=== PATIENT | male | born 1960 | race Caucasian/White ===

== ENCOUNTER 2019-05-23 23:52 | Inpatient (IN) | payer OTHER ==
[~2019-05-23] VITALS: Ht 195.6 cm; Wt 158.5 kg
[2019-05-24] VITALS (8 sets, daily range): BP systolic 83–156; BP diastolic 49–75; Ht 195.6 cm; Wt 158.5 kg
--- NOTE | 2019-05-24 00:20 | NUR ---
MSE COMPLETED BY DR HAGER
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
[2019-05-24 00:44] LABS: CALCIUM 9.1 mg/dL (8.5-10.1); CHLORIDE SERUM 105 mmol/L (98-107); CREATININE SERUM 1.1 mg/dL (0.7-1.3); GFR1 > 60 mL/min; GLUCOSE SERUM 134 mg/dL (74-106); SODIUM SERUM 141 mmol/L (136-145)
[2019-05-24 00:49] LABS: ALBUMIN 3.4 g/dL (3.4-5.0); ALKALINE PHOSPHATASE 64 U/L (46-116); ALT/SGPT 37 U/L (16-63); AST/SGOT 23 U/L (15-37); BILIRUBIN TOTAL 0.3 mg/dL (0.20-1.00); TOTAL PROTEIN, SERUM 7.7 g/dL (6.4-8.2)
[2019-05-24 00:50] LABS: BASOPHIL % 0.1 % (0-2); PLATELET COUNT 215 x10^3mcL (130-400)
[2019-05-24 00:52] LABS: RED CELL DISTRIBUTION WIDTH 18.3 % (11.5-14.5)
--- NOTE | 2019-05-24 01:06 | NUR ---
PT PLACED ON BIPAP MACHINE PER DR HAGER VERBAL ORDERS. PT IS TOLERATING MASK WELL. WILL CONTINUE TO MONITOR
--- NOTE | 2019-05-24 02:05 | NUR ---
PT WAS ABLE TO USE URINAL TO GIVE URINE SPECIMEN. PT REPORTS VELÁSQUEZ. DR HAGER MADE AWARE
--- NOTE | 2019-05-24 02:28 | NUR ---
PT RETURNED FROM CT WITH NO INCIDENCE
[2019-05-24 02:43] LABS: UA SPECIFIC GRAVITY 1.025 (1.005-1.035); microscopic required? YES; urine erythrocyte TRACE (NEGATIVE)
[2019-05-24] MEDS ORDERED: METFORMIN HCL850 MG PO (02:57)
[2019-05-24] MEDS ORDERED: ATROVENT H0.017 MG/1 INH (02:58)
[2019-05-24] MEDS ORDERED: XOPENEX HF0.045 MG/1 INH (02:58)
[2019-05-24] MEDS ORDERED: FUROSEMIDE20 MG PO (02:59)
[2019-05-24] MEDS ORDERED: COUMADIN10 MG PO (02:59)
[2019-05-24] MEDS ORDERED: KLOR-CON M2020 MEQ PO (02:59)
[2019-05-24] MEDS ORDERED: ATORVASTATIN CA10 M1 PO (02:59)
[2019-05-24] MEDS ORDERED: FLO4 PO (03:00)
[2019-05-24] MEDS ORDERED: NYSTATIN1 EAC8 MC (03:00)
--- NOTE | 2019-05-24 03:43 | NUR ---
PT REPORT GIVEN TO ARIELA CASTILLO TO ASSUME PRIMARY CARE OF PT ON TELE FLOOR
[2019-05-24 03:57] LABS: CHOLESTEROL/HDL RATIO 3.1; MAGNESIUM 1.7 mg/dL (1.8-2.4)
[2019-05-24 03:58] LABS: AMPHETAMINE QUAL UR NONE DETECTED (See below)
--- NOTE | 2019-05-24 03:59 | NUR ---
PT MEDICATED PER EMAR ORDERS. PT ADJUSTED INTO A COMFORTABLE POSITION ON ED GURNEY. PT IS A/O X4. PT RESPS ARE E/U. PT HAS GUARDS AT BEDSIDE. NO ACD NOTED
--- NOTE | 2019-05-24 04:24 | NUR ---
PT WHEELED UPSTAIRS TO TELE FLOOR VIA ED GURNEY AND ESCORTED BY MYSELF AND ANÍBAL EMT. NO INCIDENCE NOTED
--- NOTE | 2019-05-24 05:30 | NUR ---
RECIEVED PATIENT FROM ED NURSE VIA MELANIA. PATIENT IS MADE COMFORTABLY IN BED. NO DISTRESS NOTED. ON BIPAP. BREATHING EVEN AND UNLABORED. NO SOB. WHEEZING HEARD TO THE LLL. RT PROTOCOL A/OX4. C/O MILD HEADACHE AND DIZZINESS. HEADACHE AND RLE PAIN 07/01. ED NURSE JUST MEDICATED WITH PRN MORPHINE PRIOR TO TRANSFER. DENIES CHEST PAIN AT THIS TIME. TELE 27 WITH SINUS TACH. TWO IV TO THE RIGHT HAND 22G (PLACE BY CLINIC) AND RFA, 20G. BOTH PATENT AND INTACT. NO REDNESS OR SWELLING NOTED. WOUNDS NOTED TO THE BLE. PICTURES TAKEN. SCD AT BEDSIDE. HX OF DVT. COMFORT AND SAFETY MEASURES IN PLACE. ORIENTED PATIENT TO THE ROOM AND BED CONTROLS. CALL LIGHT IS WITHIN REACH. SAFETY MEASURES IN PLACE. BED IS LOCKED AND IN THE LOWEST POSITION. WILL CONTINUE TO MONITOR AND ENDORSE CARE TO DAY SHIFT RN.
--- NOTE | 2019-05-24 06:31 | NUR ---
C/O 10/ HEADACHE. PRN NORCO WAS GIVEN PRESCRIBED. WILL CONTINUE TO MONITOR AND REASSESS PAIN LEVEL. WILL ENDORSE TO DAY SHIFT RN
--- NOTE | 2019-05-24 07:10 | NUR ---
RECEIVED HAND OFF REPORT FROM OFF GOING NURSE. FOUND PATEINT RIGHT SIDE LAYING WITH BIPAP IN PLACE. TELE MONITOR 27, CALL LIGHT WITHIN REACH. OFFICER AT BEDSIDE
--- NOTE | 2019-05-24 08:56 | NUR ---
PATIENT COMPLAINING OF HEADACHE, ADMINSITERED PER JAN. INSTRUCTED PATIENT TO KEEP BIPAP IN PLACE DUE TO INCREASED SHORTNESS OF BREATH AND INCREASED WORK OF BREATHING WHEN REMOVED. PATIENT SITTING UP HIGH IN BED WITH HOB RAISED. CALL LIGHT WITHINREACH
--- NOTE | 2019-05-24 10:23 | NUR ---
PATIENT OFF BIPAP PER RT. NOW ON XOIMIZER AT 8L SATTING 94%. CURRENTLY OFF FLOOR FOR CT HEAD.
--- NOTE | 2019-05-24 10:53 | NUR ---
PATIENT BACK FROM CT OF HEAD. INCREASED WORK OF BREATHIN ON THE XOIMIZER, INCREASED TO 10L, SATTING AT 89. RT TIANA PLACED PATIENT BACK ON BIPAP. SOW SATTING AT 94. SUPERVISOR BAKING CAME TO START ECHOCARDIOGRAM. PATIENT LEFT SIDE LAYING WITH HEAD OF BED RAISED. CALL LIGHT WITHIN REACH AND CO AT BEDSIDE
--- NOTE | 2019-05-24 11:33 | NUR ---
LIMITED ECHOCARDIOGRAM DONE-PATIENT VERY SHORT OF BREATH
--- NOTE | 2019-05-24 11:40 | NUR ---
ARIKN UNABLE TO COMPLETE ECHOCARDIOGRAM, PATIENT HAD REMOVED BIPAP MASK AND HAD DIFFICULTY BREATHING. REPLACED BIPAP AND REPOSITIONED PATIENT. PATIENT CONTINUES TO COMPLAIN OF PAIN AND AGITATION. AFTER CALMING PATIENT, OXYGEN SATURATON INCREASED TO 93%. VITAL SIGNS STABLE, RT SEEING ASSESSING PATIENT.
--- NOTE | 2019-05-24 13:34 | NUR ---
CALLED DR RAMOS AND RECEIVED ORDER FOR TORODOL 15MG IV Q6H PRN PAIN. READ BACK ORDER TO CONFIRM
--- NOTE | 2019-05-24 14:17 | NUR ---
MADE DR RAMOS AWARE OF NSAID ALLERGY ON RECORD. PATIENT STATES THAT HE IS NOT ALLERGIC TO NSAIDS ONLY TO KFLEX AND CIPRO. REMOVED ALLERGY FROM RECORD. DR RAMOS ORDERED TORADOL 15MG IV ONCE. PATIENT STATED MULITPLE TIMES THAT HE IS NOT ALLERGIC TO NSAIDS. DR RAMOS STATED HE HAS NO KNOWLEDGE OF NSAID ALLERGY AND CONFIRMED ORDER FOR TORADOL
--- NOTE | 2019-05-24 14:43 | NUR ---
ADMINISTERED TORADOL FOR PAIN PER DR RAMOS ORDER. PATIENT AGAIN CONFIRMED THAT HE IS NOT ALLERGIC TO NON STEROID ANTI-INFLAMATORY MEDICATION. MAICOL RN WILL REMAIN IN ROOM WITH PATIENT TO MONITOR FOR A TIME. CO AT [facility] AND CALL DMITRIY CARCAMO
--- NOTE | 2019-05-24 15:27 | NUR ---
ASSISTED PT TO WASH FACE AND BED BATH, ASSISTED PT TO BRUSH TEETH, PT SITTING AT EDGE OF BED, BIPAP ON, PT STATES TORADOL RELIEVED VELÁSQUEZ MODERATELY, GUARD AT BEDSIDE, CALL LIGHT WITHIN REACH.
--- NOTE | 2019-05-24 17:05 | NUR ---
PATIENT RESTING IN, BED IN SEMIFOWLERS WITH BIPAP IN PLACE. PATIENT TELE MONITOR REPLACED AND CONFIRMED WITH CK. RENFORCED TEACHING TO PATIENT TO KEEP BIPAP IN PLACE TO ASSIT WITH BREATHING. PATIENT HAD NO COMPLAINTS AT THIS TIME. NUSRAT NAVA, AT BEDSIDE. CALL LIGHT WITHIN REACH
--- NOTE | 2019-05-24 17:28 | NUR ---
SPOKE WITH DR RICHARD ZUNIGA PATIENT HAS HISTORY OF DVT TO RIGHT LOWER EXTREMITY. CURRETLY EXTREMITY IS RED AND TENDER TO TOUCH. DR RAMOS AGREED WITH ORDER FOR BILAT LOWER EXTREMITY US.
--- NOTE | 2019-05-24 17:53 | NUR ---
ADMINISTERED MEDICATIONS PER JAN. BG RESULT 113, NO COVERAGE NEEDED. PATIENT SHIVERING, NO FEVER NOTED, TEMP 99.7. TURNED OFF AC UNIT AND PROVIDED ADDITIONAL BLANKET. CALL LIGHT WITHIN REACH
--- NOTE | 2019-05-24 18:59 | NUR ---
PATIENT COMPLAINING OF PAIN. MEDICATED PER MAR, PATIENT REPORTS THAT US OF HIS LEGS WAS DONE. CALL LIGHT WITHIN REACH
--- NOTE | 2019-05-24 19:40 | NUR ---
RECEIVED REPORT FROM AM NURSE, PT IN BED. PT AAOX4 ABLE TO FOLLOW COMMANDS. ON TELE #27, DENIES CP/PRESSURE AT THIS TIME. PALPABLE PULSES TO BLE AND BUE, EDEMA TO RIGHT LEG. WHEEZE TO ANGIE LOWER LOBES, ON BIPAP, SOB ON EXERTION. ABD FIRM AND ROUND, ACTIVE BOWEL SOUNDS X4 QUAD, DENIES N/V. VOIDS FREELY ON URINAL, BEDFST AT THIS TIME. GENERALIZED WEAKNESS. WOUNDS TO LLE AND RLE COVERED WITH DRESSING, DRESSING CDI. SL TO RIGHT WRIST FLUSING WELL, SITE FREE FROM REDNESS AND SWELLING. SL TO RIGHT WRIST FLUSING WELL, SITE FREE FROM REDNESS AND SWELLING. BED AT LOWEST POSITION, CALL LIGHT WITHING REACH, WILL CONTINUE TO MONITOR.
--- NOTE | 2019-05-24 20:09 | NUR ---
CALLED DR RAMOS REGARDING PT LATEST BP, BP 83/54 TO RIGHT ARM, BP 83/55 TO LEFT ARM AND LATEST TEMP OF 101.4. NEW ORDERS GIVEN, VANCOMYCIN 1GM X1 AND PHAMACY TO DOSE, NS BOLUS 500ML X1. BACTRIM 1GM IV Q12H. PHARMACY MADE AWARE OF ORDERS, HAD SOME QUESTIONS ABOUT BACTRIM ORDER, INFORMED NURSE HE WILL CALL DR TO CLARIFY BACTRIM ORDER.
--- NOTE | 2019-05-24 22:00 | NUR ---
PT MEDICATED WITH PRN TYLENOL FOR FEVER OF 101.4, REASSED TEMP, CURRENT TEMP IS 99.1, WILL CONTINUE TO MONITOR
--- NOTE | 2019-05-24 22:03 | NUR ---
RECHECKED BP, CURRENT BP IS 107/71, HR 95, NO SIGNS OF ACUTE DISTRESS NOTED. WILL CONTINUE TO MONITOR.
[2019-05-25] VITALS (8 sets, daily range): BP systolic 89–163; BP diastolic 48–104
--- NOTE | 2019-05-25 04:16 | NUR ---
PT REPORTED SHIVERING.TEMP CHECKED @ 101.6F.TYLENOL 650 MG PO ADMINISTERED.COOLING MEASURES RESTARTED.REFUSING TO TAKE OFF BLANKETS AT THIS TIME BUT ABLE TO REMOVE ONE.FLUIDS OFFERED AND D TOLERATED WELL.REMAINS ON BIPAP.WILL CONTINUE TO MONITOR.
[2019-05-25 06:33] LABS: PLATELET COUNT 177 x10^3mcL (130-400)
[2019-05-25 06:37] LABS: CARBON DIOXIDE 20.1 mmol/L (21-32); CREATININE SERUM 1.8 mg/dL (0.7-1.3); POTASSIUM SERUM 4.3 mmol/L (3.5-5.1)
--- NOTE | 2019-05-25 06:38 | NUR ---
MORNING CARE RENDERED.CHANGED ALL GOWNS AND LINEN AND ABLE TO TRANSFER FROM BED TO WHEELCHAIR.INN NO RESPIRATORY DISTRESS.WILL CONTINUE TO MONITOR.
--- NOTE | 2019-05-25 06:53 | NUR ---
PT BP THIS AM @ 89/53 MG/DL.PT ASYMPTOMATIC.CALLED DR. RAMOS WITHN ORDER FOR BOLUS 500ML X1.WILL CARRY OUT.
--- NOTE | 2019-05-25 07:30 | NUR ---
RECEIVED HAND OFF REPORT FOR PATIENT FROM [facility] NURSE. FOUND PATIENT UP ON SIDE OF BED EATING BREAKFAST TRAY, PATIENT HAD REMOVED BIPAP MASK AND WAS HAVING INCREASED WORK OF BREATHING SO PLACED PATIENT ON OXIMIZER AT 10L. TOELRATED WELL DURING MEAL. CALL LIGHT WITHIN REACH
--- NOTE | 2019-05-25 07:59 | NUR ---
PATIENT HAD FINISHED MEAL TRAY, VS CHECKED: BP 96/48, O2 SAT 89% PATIENT WANTED TO LAY DOWN SO REPLACED THE BIPAP AND TIGHTENED MASK TO REMOVED LEAKS. TOLLERATING WELL, STARTED 500ML BOLUS NS FOR BLOOD PRESSURE PER ORDER CALL LIGHT WITHIN REACH
[2019-05-25 08:08] LABS: RED CELL DISTRIBUTION WIDTH 18.2 % (11.5-14.5)
--- NOTE | 2019-05-25 08:33 | NUR ---
PATIENT CALLED TO COMPLAIN OF PAIN TO HIS HEAD. INFORMED PATIENT THAT DUE TO DECREASED BLOOD PRESSURE HE COULD NOT RECEIVE PAIN MEDICATION. NS BLOUS STILL INFUSING. WILL REASSESS BLOOD PRESSURE AFTER INFUSION ENDS. PATIENT SITTING UP ON SIDE OF BED. WEARING BIPAP MASK WITH GOOD COMPLIANCE. CALL LIGHT WITHIN REACH
--- NOTE | 2019-05-25 10:02 | NUR ---
ADMINISTERED MEDICATIONS PER JAN, HELD BLOOD PRESSURE MEDICATIONS BECUASE OF LOW BLOOD PRESSURE. PATIENT COMPLAINING OF HEAD ACHE, THROBBING 07/01 DID NOT WANT TYLENOL WANTED AN IV MEDICATION, INFORMED PATIENT THAT HIS BLOOD PRESSURE IS LOW AND MEDICATION COULD MAKE BLOOD PRESSURE GO LOWER, GAVE PATIENT ICE PACK FOR HEAD. REMAINS ON BIPAP WITH GOOD COMPLIANCE. CALL LIGHT WITHIN REACH, REQUESTED LIGHTS TO BE TURNED OUT
--- NOTE | 2019-05-25 10:58 | NUR ---
MEDICATED WITH NORCO FOR PAIN, 07/01 TO HEADACHE. PATIENT BLOOD PRESSURE WAS 117/64 MAP 79. SITTING UP ON SIDE OF BED, CALL LIGHT WITHIN REACH, CO AT BEDSIDE
[2019-05-25 12:17] LABS: BAND NEUTROPHIL 25 % (0-10); MONOCYTE 5 % (0-7); SEGMENTED NEUTROPHILS 66 % (37-75); rbc morphology (normal/abnorm) ABNORMAL (NORMAL)
[2019-05-25 12:18] LABS: PLATELET MORPHOLOGY LARGE PLATELET SEEN
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
--- NOTE | 2019-05-25 12:32 | NUR ---
Recommendations: 1. Add Remy BID for wound healing 2. Add Ensure Enlive BID
--- NOTE | 2019-05-25 13:26 | NUR ---
RUBEN FROM PHARMACY CALLED TO INFORM OF DISCONTINUED VANCO INFUSION DUE TO VANCO TROUGH OF 23. INSTRUCTED TO NOT GIVE 1400 DOSE OF VANCO
--- NOTE | 2019-05-25 15:42 | NUR ---
MEDICATED PRN FOR PAIN, PATIENT REQUESTING TORADOL. BLOOD PRESSURE HIGH. PATIENT IS NOW ON OXIMIZER 8L. TOLERATING WELL. BIPAP MASK WITHIN REACH. CALL LIGHT WITHIN REACH, CO IN ROOM
--- NOTE | 2019-05-25 17:20 | NUR ---
ADMIISTERED MEDICATION PER JAN. COMPLAINED OF HEADACHE AND REQUESTED TYLENOL. PATIENT SITTING UP AT SIDE OF BED. CALL LIGHT WITHIN REACH
--- NOTE | 2019-05-25 17:26 | NUR ---
RT AT BEDSIDE. CHANGING PATIENT OVER TO HIGH FLOW 02. PROVIDING TEACHING ON INCENTIVE SPIROMETER.
--- NOTE | 2019-05-25 19:27 | NUR ---
RECEIVED REPORT FROM AM NURSE. PT LAYING DOWN IN BED. AAOX4, ABLE TO MAKE NEEDS KNOWN. ON TELE#27, DENIES CP/PRESSURE AT THIS TIME. PALPABLE PULSES TO BLE, EDEMA TO BLE NOTED. WHEEZES TO ANGIE LOWER LOBES, FINE CRACKLES TO RUL, PT ON BIPAP BREATHING EVEN AND UNLABORED. NO SIGNS OF ACUTE DISTRESS NOTED. ABD FIRM AND ROUND, AVTIVE BOWEL SOUNDS X4 QUAD, DENIES N/V AT THIS TIME. VOIDS FREELY ON URINAL. GENERALIZED WEAKNESS, BESFAST AT THIS TIME, ABLE TO TRANSFER TO CHAIR OR WHEELCHAIR. BLE ISLAND DRESSING CDI. IV SL TO RIGHT WRIST AND RFA FLUSING WELL, SITE FREE FROM REDNESS AND SWELLING. BED AT LOWEST SETTING, CALL LIGHT WITHING REACH, WILL CONTINUE TO MONITOR.
--- NOTE | 2019-05-25 22:37 | NUR ---
PT COMPLAINING OF H/A, MEDICATED WITH PRN TYLENOL PER ORDER. PT REPORTS GOOD RELIEF. NO SIGNS OF ACUTE DISTRESS NOTED, WILL CONTINUE TO MONITOR.
[2019-05-26] VITALS (7 sets, daily range): BP systolic 89–143; BP diastolic 41–78
--- NOTE | 2019-05-26 00:49 | NUR ---
PT CHANGED TO OXYMIZER PER RT, TOLERATING WELL, 02 SAT AT 97%. WILL CONTINUE TO MONITOR.
--- NOTE | 2019-05-26 01:28 | NUR ---
PT IN BED SLEEPING COMFORTABLY. BREATHING EVEN AND UNLABORED ON HIGH FLOW TOLERATING WELL. NO SINGS OF ACUTE DISTRESS NOTED. BED AT LOWEST SETTING, CALL LIGHT WITHING REACH. WILL CONTINUE TO MONITOR.
[2019-05-26 06:14] LABS: PLATELET COUNT 171 x10^3mcL (130-400)
--- NOTE | 2019-05-26 06:30 | NUR ---
PT SLEPT AT INTERVALS THROUGHOUT THE NIGHT. BREATHING EVEN AND UNLABORED ON OXYMIZER. NO SIGNS OF ACUTE DISTRESS NOTED. ALL NEEDS ASSESSED AND ATTENDED TO. IV TO LFA INFUSIGN WELL, SITE WNL. BED AT LOWEST SETTING, CALL LIGHT WITHING REACH. WILL ENDORSE CARE TO AM NURSE.
[2019-05-26 06:51] LABS: CALCIUM 9.4 mg/dL (8.5-10.1); CARBON DIOXIDE 22.7 mmol/L (21-32); CREATININE SERUM 1.6 mg/dL (0.7-1.3); POTASSIUM SERUM 4.4 mmol/L (3.5-5.1); RED CELL DISTRIBUTION WIDTH 18.6 % (11.5-14.5)
--- NOTE | 2019-05-26 07:10 | NUR ---
RECEIVCED BEDSIDE REPORT FORM DIRECTOR OF SERVICES NURSE. PATIENT IS SLEEPING. ON 8L OXYMIZER. PATIENT IS CIM HAS RESTRAINT TO ROYER DEPUTTin AT BEDSIDE. PATIENT HAS SEVERAL WOUNDS TO BLE. ALSO MULTIPLE HEALED SCARS TO BLE. WOUNDS COVERED WITH ISLAND DRESSING. DRESSING CDI. IV TO LFA IS INTACT AND PATENT. NE EDEMA OR ERYTHEMA NOTED TO SITE. CALL LIGHT WITHIN REACH. BED IN LOW POSITION. QUESTIONS AND CONCERNS ADDRESSED. SAFETY PRECAUTIONS IN PLACE.
--- NOTE | 2019-05-26 07:15 | NUR ---
PHYSICAL ASSESSMENT COMPLETED. PLEASE SEE PROBLEM FOCUSED CARE FOR DETAILS.
--- NOTE | 2019-05-26 08:33 | NUR ---
CONTACTED MD RAMOS TO MAKE AWARE OF RLE HOT, SWOLLEN. PER MD PATIENT ON COUMADIN, US FOR DVT NEG ON 05/24/19. HE WILL ASSESS PATIENT WHEN MAKING ROUNDS. NO FUTHER ORDERS AT THIS TIME.
--- NOTE | 2019-05-26 09:12 | NUR ---
PATIENT IS STABLE RESTING COMFORTABLY IN BED. NO APPARENT SIGNS OF PAIN. PATIENT DENIES SOB, OR RESPIRATORY DISTRESS. ON 8L OXYMIZER. DEPUTY AT BEDSIDE. CALL LIGHT WITHIN REACH. BED IN LOW PISITION. QUESTIONS AND CONCERNS ADDRESSED, SAFETY PRECAUTIONS IN PLACE.
--- NOTE | 2019-05-26 10:29 | NUR ---
ADMINISTERED MEDICATIONS PER EMAR. PATIENT EDUCATED ON NEED FOR MEDICATION, WELL ADVERSE EFFECTS TO REPORT. PATIENT VERBNALIZED UNDERSTANDING. CALL LIGHT WITHIN REACH. BED IN LOW POSITION, BED RAILS UP X2. DEPUTY AT BEDSIDE. ON 8L OXYMIZER IN PLACE. IV PATENT AND INTACT. SCD'S AT BEDSIDE. QUESTIONS AND CONCERNS ADDRESSED. SAFETY PRECAUTIONS IN PLACE.
[2019-05-26 11:32] LABS: BAND NEUTROPHIL 0 % (0-10); BASOPHIL 0 % (0-2); MONOCYTE 4 % (0-7); SEGMENTED NEUTROPHILS 92 % (37-75)
[2019-05-26 11:33] LABS: PLATELET MORPHOLOGY PLATELETS DECREASED; rbc morphology (normal/abnorm) ABNORMAL (NORMAL)
--- NOTE | 2019-05-26 12:16 | NUR ---
ADMINISTERED MEDICATION PER EMAR. PATIENT EDUCATED ON NEED FOR MEDICATION WELL ADVERSE EFFECTS TO REPORT. PATIENT VERBALIZED INDERSTANDING. QUESTIONS AND CONCERNS ADDRESSED. SAFETY PRECAUTIONS IN PLACE.
--- NOTE | 2019-05-26 12:57 | NUR ---
PATIENT C/O HEART BURN. CONTACTED MD RAMOS. GAVE TELEPHONE ORDER FOR MYLANTA 30ML PO BID FOR HEART BURN.
--- NOTE | 2019-05-26 13:44 | NUR ---
PATIENT C/O HEADACHE. ADMINISTERED MEDICATION PER EMAR. PATIENT EDUCATED ON NEED FOR MEDICATION WELL ADVERSE EFFECTS TO REPORT. PATIENT VERBALIZED UNDERSTANDING. PATIENT DENIES OTHER NEEDS AT THIS TIME. QUESTIONS AND CONCERNS ADDRESSED. SAFETY PRECAUTIONS IN PLACE.
--- NOTE | 2019-05-26 15:37 | NUR ---
PATIENT IS STABLE NO APPARENT SIGNS OF PAIN. PATIENT DENIES SOB, OR RESPIRATORY DISTRESS. PATIENT C/O NAUSEA. STATES DOES NOT WANT MORE MEDCATION FOR NOW. PATIENT DENIES OTHER NEEDS AT THIS TIME. CALL LIGHT WITHIN REACH. BED IN LOW POSITION. QUESTIONS AND CONCERNS ADDRESSED. SAFETY PRECAUTIONS IN PLACE.
--- NOTE | 2019-05-26 16:26 | NUR ---
PATIENT C/O NAUSEA. ADMINISTERED MEDICATION PER EMAR. PATIENT IS ON HIGH FLOW 40L AT 75% SATING 92%. CALL LIGHE WITHIN REACH. BED IN LOW POSITION. DEPUTY AT BEDSIDE. PATIENT DENIES OTHER NEEDS. QUESTIONS AND CONCERNS ADDRESSED. SAFETY PRECAUTIONS IN PLACE.
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
--- NOTE | 2019-05-26 19:25 | NUR ---
ENDORSED CARE TO PRICING ANALYST NURSE TEMI.
--- NOTE | 2019-05-26 19:30 | NUR ---
RECEIVED PT FROM DAY SHIFT RN. PT RESTING IN BED, ALERT AND ORIENTED. PT STATES THAT HE HAS A LITTLE TROUBLE BREATHING AND IS SITTING ON THE EDGE OF TH BED. INSTRUCTED PT NOT TO REMOVE HIGH FLOW O2 THAT IS CURRENTLY AT 40L. PT HAS A LFA IV THAT IS CLEAN DRY AND INTACT. BLE SKIN IS NOT INTACT. ISLAND DRESSINGS COVERING LEFT LEG. REDNESS AND EDEMA TO RIGHT LEG NOTED. PT STATES THAT HE IS HAVING PAIN IN HIS LOWER EXTREMITIES. WILL MEDICATED PER ORDER. PT IS WHEEZING. EFFORT IS LABORED. BREATHING IS EVEN. INSTRUCTED PT TO CALL IF SOB IS WORSENING AND NONTOLERABLE. SAFETY MEASURES ARE IN PLACE. TELE MONITOR IN PLACE. CALL LIGHT WITHIN REACH. WILL CONTINUE TO MONITOR.
--- NOTE | 2019-05-26 21:11 | NUR ---
CALLED PHARMACY TO VERIFY IF IT IS OK TO HANG 2100 VANCOMYCIN TROUGH 16. PHARMACIST SAID IT WAS OK TO GIVE. WILL CARRY OUT
--- NOTE | 2019-05-26 23:23 | NUR ---
ADMINISTERED 0900 LASIX PER CHARGE NURSE ORDER. PT BP SUFFICIENT ENOUGH FOR ADMINISTRATION. PT TOLERATED WELL
--- NOTE | 2019-05-26 23:24 | NUR ---
WRAPPED PT LEGS. PT TOLERATED WELL.
--- NOTE | 2019-05-26 23:24 | NUR ---
PT CONTINUOUSLY TAKES OF OXYGEN. EXPLAINED TO PATIENT THE NEED TO KEEP HIS O2 SATURATION HIGHER. PT AGREED TO KEEP IT ON.
[2019-05-27] VITALS (7 sets, daily range): BP systolic 119–140; BP diastolic 52–78
--- NOTE | 2019-05-27 00:47 | NUR ---
PT PULLED OUT IV. WILL RESTART NEW ONE.
--- NOTE | 2019-05-27 01:43 | NUR ---
PT WENT INTO ATRIAL FIBRILLATION. SPOKE TO DR RAMOS ON THE PHONE. DR RAMOS SAID TO GIVE THE MISSED DOSE OF METROPOLOL. WILL CARRY OUT ORDER.
--- NOTE | 2019-05-27 01:55 | NUR ---
PT NOW SINUS TACH ADMINISTERED METROPOLOL PER ORDER
--- NOTE | 2019-05-27 02:13 | NUR ---
RECEIVED PT FROM ER VIA [employer]. PT IS ALERT AND ORIENTED X 4 AND ABLE TO FOLLOW COMMANDS. PT IS [place] SPEAKING AND SHE IS ACCOMPANIED BY HER . ON ASSESSMENT PT IS NOT SYMPTOMATIC FOR CHEST PAIN OR SHORTNESS OF BREATH. THERE ARE NO USE OF ACCESSORY MUSCLES OR LABORED BREATHING ON ASSESSMENT. TELE MONITOR IN PLACE #15 SINUS ARRYTHMIA AT 56. BOWEL SOUNDS ARE HYPOACTIVE. PT IS COMPLAINING OF ABD PAIN 7/10 AT THIS TIME. WILL MEDICATE PER ORDER. PT HAS A RAC IV THAT IS CLEAN DRY AND INTACT RUNNING AT 100 ML/HR. SKIN IS INTACT. PT IS AMBULATORY. SAFETY MEASURES ARE IN PLACE. BED IN LOWEST POSITION. WILL CONTINUE TO MONITOR.
[2019-05-27 06:02] LABS: PLATELET COUNT 185 x10^3mcL (130-400)
[2019-05-27 06:18] LABS: CALCIUM 9.6 mg/dL (8.5-10.1); CARBON DIOXIDE 27.7 mmol/L (21-32); CHLORIDE SERUM 102 mmol/L (98-107); CREATININE SERUM 1.2 mg/dL (0.7-1.3); GFR1 > 60 mL/min; GLUCOSE SERUM 112 mg/dL (74-106); POTASSIUM SERUM 4.3 mmol/L (3.5-5.1); SODIUM SERUM 138 mmol/L (136-145)
[2019-05-27 06:45] LABS: RED CELL DISTRIBUTION WIDTH 19.1 % (11.5-14.5)
--- NOTE | 2019-05-27 06:55 | NUR ---
PT RESTING IN BED WITH EYES CLOSED. NO FACIAL GRIMMACING OR USE OF ACCESSORY MUSCLES. BREATHING EVEN AND UNLABORED. SAFETY MEASURES IN PLACE. CALL LIGHT WITHIN REACH. WILL ENDORSE TO AV BENTLEY RN.
--- NOTE | 2019-05-27 07:10 | NUR ---
RECEIVED REPORT FROM BOOKMAKER MAP NURSE TEMI. PATIENT IS STABLE DENIES CHEST PAIN, SOB, OR RESPIRAOTRY DISTRESS. PATIENT IS ON HIGH FLOW OXYGEN 40L AT 75% PATIENT CONTINUES TO COUGH FREQUENTLY WITH MUCOUS PRODUCTION. DEPUTY AT BEDSIDE. IV TO LFA IS SALINE LOCKED. NO EDEMA OR ERYTHEMA NOTED TO SITE. ON TELE 27. CALL LIGHT WITHIN REACH, BED IN LOW POSITION, BED RAILS UP X2. QUESTIONS AND CONCERNS ADDRESSED. SAFETY PRECAUTIONS IN PLACE.
--- NOTE | 2019-05-27 07:28 | NUR ---
RECEIVED REPORT FROM NEWSPAPER PEDDLER NURSE TEMI. PATIENT IS STABLE DENIES CHEST PAIN, SOB, OR RESPIRAOTRY DISTRESS. PATIENT IS ON HIGH FLOW OXYGEN 40L AT 75%. PATIENT CONTINUES TO COUGH FREQUENTLY WITH MUCOUS PRODUCTION. DEPUTY AT BEDSIDE. IV TO LFA IS SALINE LOCKED. NO EDEMA OR ERYTHEMA NOTED TO SITE. ON TELE 27. CALL LIGHT WITHIN REACH, BED IN LOW POSITION, BED RAILS UP X2. QUESTIONS AND CONCERNS ADDRESSED. SAFETY PRECAUTIONS IN PLACE.
--- NOTE | 2019-05-27 07:45 | NUR ---
PATIENT COMPLAINING OF HEADACHE. ADMINISTERED MEDICATION PER EMAR. EDUCATED ON NEED FOR MEDICATION. PATIENT VERBALIZED UNDERSTANDING AND ADVERSE EFFECTS TO REPORT. QUESTIONS AND CONCERNS ADDRESSED. SAFETY PRECUTIONS IN PLACE.
--- NOTE | 2019-05-27 09:45 | NUR ---
ADMINISTERED MEDCATION PER EMAR. PATIENT EDUCATED ON NEED FOR MEDICATION AND ADVERSE EFFECTS TO RESPORT. PATIENT VERBALIZED UNDERSTANDING. QUESTIONS AND CONCERNS ADDRESSED. SAFETY PRECAUTIONS IN [place]. DEPUTY AT BEDSIDE.
--- NOTE | 2019-05-27 10:03 | NUR ---
PATIENT C/O TO MUCH WATER IN THE HIGH FLOW OXYGEN DEVICE. CALLED RT TO EXAMINE THE EQUIPMENT.
[2019-05-27 10:20] LABS: BASOPHIL 0 % (0-2); MONOCYTE 8 % (0-7)
[2019-05-27 10:21] LABS: BAND NEUTROPHIL 20 % (0-10)
[2019-05-27 10:22] LABS: SEGMENTED NEUTROPHILS 64 % (37-75)
[2019-05-27 10:23] LABS: rbc morphology (normal/abnorm) ABNORMAL (NORMAL)
--- NOTE | 2019-05-27 12:11 | NUR ---
PATIENT IS STABLE. DENIES SOB, OR RESPIRATORY DISTERESS. PATIENT STATES PAIN TO BLE. DENIES NEED FOR MEDICATION AT THIS TIME. PATIENT DENIES OTHER NEEDS AT THIS TIME. CALL LIGHT WITHIN REACH. BED IN LOW POSITION. ON HIGH FLOW OXYGEN 40L. IV SALINE LOCKED, NO EDEMA OR ERYTHEMA NOTED TO SITE. QUESTIONS AND CONCERNS ADDRESSED, SAFETY PRECAUTIONS IN PLACE.
--- NOTE | 2019-05-27 16:20 | NUR ---
ADMINISTERED MEDCATION PER EMAR. PATIENT EDUCATED ON NEED FOR MEDICATION AND ADVERSE EFFECTS TO RESPORT. PATIENT VERBALIZED UNDERSTANDING. QUESTIONS AND CONCERNS ADDRESSED. SAFETY PRECAUTIONS IN [place].
--- NOTE | 2019-05-27 18:55 | NUR ---
PATIENT IS STABLE. PATIENT DENIES PAIN, SOB, OR RESPIRATOTRY DISTRESS. PATIENT IS ON HIGH FLOW 40L 75%. PATIENT IS OFTEN FOUND WITH OXYGEN DEVICE OFF. WILL REPLACE WHEN ASKED TO DO SO. MULTIPLE LEG WOUNDS WITH ISLAND DRESSING, CDI. IV TO LFA IS INTACT. FLUSHES WELL. NO EDEMA OR ERYTHEMA NOTED TO SITE. CALL LIGHT WITHIN REACH. BED IN LOW POSITION. QUESTIONS AND CONCERNS ADDRESSED. WILL ENDORSE CARE TO TRANSPORTATION SUPERVISOR NURSE.
--- NOTE | 2019-05-27 19:30 | NUR ---
RECEIVED PT FROM DAY SHIFT RN. PT IS ALERT AND ORIENTED TO PERSON PLACE AND TIME AND IS ABLE TO FOLLOW SIMPLE COMMANDS. PT DENIES CHEST PAIN AT THIS TIME. STATES HE HAS INTERMITTENT SOB BUT TAKES HIS HIGH FLOW O2 OFF BECAUSE IT FEEL UNCOMFORTABLE. EDUCATED PT ON THE NEED TO KEEP HIGH FLOW O2 IN ORDER TO PREVENT RESPIRATORY DISTRESS. PT AGREED. HIGH FLOW AT 40 L. PT LUNG SOUNDS ARE DIMINISHED WITH WHEEZING AT THE BASES. TELE MONITOR #[address]. BLE ERYTHEMA NTED WITH MULTIPLE ULCERS TO THE 1ST AND 2ND GREAT TOE. LFA IV IS CLEAN DRY AND INTACT. SAFET MEASURES ARE IN PLACE. CALL LIGHT IS WITHIN REACH. WILL CONTINUE TO MONITOR.
--- NOTE | 2019-05-28 01:50 | NUR ---
PT RESTING IN BED WITH EYES CLOSED. BREATHING HEAVY EVEN AND UNLABORED. NO DISTRESS NOTED. CALL LIGHT WITHIN REACH. WILL CONTINUE TO MONITOR.
[2019-05-28 05:20] VITALS: BP 110/55
[2019-05-28 05:58] LABS: BASOPHIL % 0.4 % (0-2); PLATELET COUNT 207 x10^3mcL (130-400)
[2019-05-28 06:31] LABS: CARBON DIOXIDE 26.9 mmol/L (21-32); CHLORIDE SERUM 103 mmol/L (98-107); CREATININE SERUM 1.1 mg/dL (0.7-1.3); GFR1 > 60 mL/min; GLUCOSE SERUM 100 mg/dL (74-106); POTASSIUM SERUM 4.1 mmol/L (3.5-5.1); SODIUM SERUM 140 mmol/L (136-145)
[2019-05-28 06:37] LABS: RED CELL DISTRIBUTION WIDTH 18.6 % (11.5-14.5)
[2019-05-28 06:38] LABS: rbc morphology (normal/abnorm) ABNORMAL (NORMAL)
--- NOTE | 2019-05-28 07:50 | NUR ---
PATIENT RESTING IN BED, NO ACUTE DISTRESS NOTED. PATIENT DENIES PAIN AT THIS TIME. NO SOB NOTED, PATIENT ON 40L HIGH FLOW. EDEMA & ERYTHEMA NOTED TO BLE, EDUCATED PATIENT TO MAINTAIN LEGS ELEVATED. MILD GENERLIZED WEAKNESS NOTED. IV TO LFA SALINE LOCK, IV SITE CDI & PATENT, NO S/S BALDO INFILTRATION. CALL LIGHT WITHIN REACH, BED IN LOW POSITION FOR SEFETY PRECAUTION. [place] AT BEDSIDE. WILL CONTINUE TO MONITOR PATIENT.
[2019-05-28 09:18] VITALS: BP 100/70
--- NOTE | 2019-05-28 11:50 | NUR ---
PATIENT REFUSED INSULIN AT THIS TIME. BLOOD GLUCOSE WAS 207. PATIENT STATED "I HAS NEVER TAKEN INSULIN, AND I DON'T WANT TO START NOW." EDUCATED PATIENT ON THE IMPORTANCE OF MONITORING GLUCOSE, PATIENT STILL REFUSED. DR. RICHARD SALCIDO.
[2019-05-28 12:53] VITALS: BP 100/56
--- NOTE | 2019-05-28 15:41 | NUR ---
DR RAMOS AWARE OF PATIENTS INR 2.6, AND PT 26. DR. RAMOS STATED OKAY TO GIVE THE COUMADIN 10MG PO DAILY AT 1700.
--- NOTE | 2019-05-28 18:00 | NUR ---
PATIENT SLEEPING IN BED, NO ACUTE DISTRESS NOTED. PATIENT IS STABLE AT THIS TIME. TELE MONITOR IN PLACE. BLE MAINTAINED ELEVATED. IV TO LFA SALINE LOCK, IV SITE CDI & PATENT, NO S/S OF INFILTRATION. CALL LIGHT WITHIN REACH, BED IN LOW POSITIOM, WILL ENDORSE REPORT TO NIGHT NURSE.
[2019-05-28 18:06] VITALS: BP 111/70
--- NOTE | 2019-05-28 18:52 | NUR ---
DR. GONZALEZ AT BEDSIDE. DR. GONZALEZ STATED HE WILL CONTINUE SAME TREATMENT.
--- NOTE | 2019-05-28 19:25 | NUR ---
RECEIVED PATIENT IN BED AWAKE, ALERT AND ORIENTED WITH NO SIGN OF ACUTE RESPIRATORY DISTRESS. BREATHING EASY AND NONLABOR ON HIGH FLOW O2 AT 40L AT 75% F102.TELE#27 NSR ON MONITOR, DENIES CHESTPAIN. BLE SWELLING WITH MULTIPLEDIABETIC ULCERS, DRESSING CDI. IV HEPLOCK FLUSHED WITH NS. ABDOMEN ROUND,OBESE AND DISTENDED WITH ACTIVE BS. WILL CONTINUE TO MONITOR. CIM OFFCICERS AT [facility].
--- NOTE | 2019-05-28 19:43 | NUR ---
C/O PAIN TO BLE NORCO 1 TAB PO GIVEN PRESCRIBED. WILL CONTINUE TO MONITOR.
[2019-05-28 20:53] VITALS: BP 111/51
--- NOTE | 2019-05-28 21:34 | NUR ---
HAD BM SOFT IN LARGE AMOUNT, PERICARE GIVEN AFTER. REPOSITIONED FOR COMFORT.
--- NOTE | 2019-05-28 23:37 | NUR ---
STILL AWAKE C/O BILATERAL LEG PAIN AT SCALE OF 8/10 PER PATIENT. NORCO 1 TAB PO GIVEN PRESCRIBED. WILL CONTINUE TO MONITOR.
--- NOTE | 2019-05-29 00:52 | NUR ---
APPEARS SLEEPING AT THIS TIME BREATHING EASY AND NONLABOR, NO SIGN OF RESPIRATORY DISTRESS NOTED. CIM OFFICERS AT BEDSIDE, WILL CONTINUE TO MONITOR.
--- NOTE | 2019-05-29 01:55 | NUR ---
AWAKE IV TO RFA LEAKING AND REINSERTED NEW IV SITE TO LEFT WRIST INTACT AND INFUSING WELL. WILL CONTINUE TO MONITOR.
--- NOTE | 2019-05-29 02:07 | NUR ---
AWAKE STILL C/O ANGIE.LEG PAIN, MORPHINE 2MG IVP GIVEN PRESCRIBED.
[2019-05-29 04:58] VITALS: BP 138/55
--- NOTE | 2019-05-29 05:10 | NUR ---
SLEPT FAIRLY C/O ANGIE.LEG PAIN X3 THE ENTIRE SHIFT AND MEDICATED PRESCRIBED. DRESSING CHANGED AND PHOTO OF WOUND TO BLE TAKEN, ALL NEEDS ATTENDED.
--- NOTE | 2019-05-29 07:20 | NUR ---
PT IS AAOX4, VERBALLY RESPONSIVE, ABLE TO COMMUNICATE NEEDS. RESP EVEN AND SHALLOW. LUNG SOUNDS DIMINISHED BILATERALLY. ON HIGH FLOW 02 AT 40LPM. NO COUGH NOTED. TELE [address] READING NSR. ABDOMEN DISTENDED, NONTENDER. BOWEL SOUNDS ACTIVE X 4 QUADS. DENIES N/V. BUE PULSES MODERATE, BLE PULSES WEAK. PT HAS BLE +3 PITTING EDEMA. BLE WRAPPED IN MARTIN BANDAGES. PT HAS BLE DRYNESS. IV CATH N/S LOCKED TO LW. SITE WNL. NO S/S OF INFECTION OR INFILTRATION NOTED. PT DENIES PAIN AT THIS TIME. CALL LIGHT WITHIN REACH. FALL PROTOCOL MAINTAINED. BED IN LOWEST POSITION. GUARD IN ROOM ON ONE TO ONE SUPERVISION.
[2019-05-29 07:40] VITALS: BP 122/65
[2019-05-29 08:56] VITALS: BP 122/65
--- NOTE | 2019-05-29 09:26 | NUR ---
TORADOL 15MG IVP GIVEN FOR ACHING H/A 05/01. DUE MEDS GIVEN. B/P 122/65. RESP EVEN AND UNLABORED. NO RESP DISTRESS NOTED. CALL LIGHT WITHIN REACH. GUARD AT BEDSIDE ON ONE TO ONE SUPERVISION.
--- NOTE | 2019-05-29 09:30 | NUR ---
DR. RAMOS MET WITH PT AND DISCUSSED POC. PT IS TO BE EVALUATED BY DR. HOLMAN TODAY. PT AGREED WITH POC.
--- NOTE | 2019-05-29 12:10 | NUR ---
PT ASSISTED TO CHAIR AT BEDSIDE. BED BATH GIVEN AND BED CLOTHES CHANGED. PT TOLERATED ACTIVTY WITH SOME SOB. OXYMIZER [address] PT BACK IN BED. CALL LIGHT WITHIN REACH.
--- NOTE | 2019-05-29 12:19 | NUR ---
B/S 121, NO INSULIN COVERAGE GIVEN PER RISS. PT TAKEN BY BED TO RADIOLOGY FOR HEAD CT THIS TIME.
--- NOTE | 2019-05-29 12:43 | NUR ---
PT BACK FROM CT. R/T PLACED PT ON OXIMIZER AT 6LPM. PT TOLERATING OXIMIZER WELL. 02 SAT 94%. RESP EVEN AND UNLABORED. PT BED IN PLACE AND LOCKED. GUARD AT BEDSIDE MAINTAINING SECURITY. CALL LIGHT WITHIN REACH. FALL PROTOCOL MAINTAINED.
[2019-05-29 12:51] VITALS: BP 92/53
--- NOTE | 2019-05-29 13:41 | NUR ---
Recommendations: 1. Continue current diet order: Cardiac diet w/ Remy BID & Ensure Enlive BID
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
--- NOTE | 2019-05-29 14:25 | NUR ---
RECEIVED ORDER FROM DR. RAMOS. NORCO 5/325MG PO Q 4HRS PRN FOR MODERATE PAIN 4-6. ORDER NOTED AND CARRIED OUT. PT MADE AWARE.
--- NOTE | 2019-05-29 14:56 | NUR ---
NORCO 5/325MG PO GIVEN FOR H/A 05/01. DUE MEDS GIVEN. RESP EVEN AND UNLABORED. OXIMIZER 6LPM IN PLACE. NO OTHER DISTRESS NOTED. GUARD AT BEDSIDE ON ONE TO ONE SUPERVISION.
--- NOTE | 2019-05-29 15:30 | NUR ---
WOUND CARE EVALUATION NOTE: REASON FOR EVALUATION: BLE WOUND SKIN ASSESSMENT DONE WITH THIS 58 Y/O MALE PT ADMITTED FROM [facility] TO [facility] [place] WITH INITIAL DX SOB. PAST MEDICAL HX INCLUDES HTN, COPD, DM. PT IS AWAKE. SKIN IS WARM AND DRY, BLE REDNESS WITH SWELLING FROM THIGH DOWN, DRY FLAKY SKIN, NO HAIR GROWTH, +3 EDEMA. DORSAL PEDAL PULSES PRESENT AND DIMISHED DUE TO EDEMA. PLAN OF CARE DISCUSSED WITH PRIMARY RN. INTEGUMENTARY: -LEFT THIGH OLD HEALED SURGICAL SCARS WITH MULTIPLE OPENED BLISTERS WITH SUPERFICIAL SKIN FLAP, WOUND BED IS 100 % BLANCHABLE REDNESS, MOIST, NO ODOR, PERIWOUND SKIN ERYTHEDEMA, SKIN INTACT. -BLE ERYTHEDEMA, WARM TO TOUCH, REDNESS DIFUSSED UPWARD TOWARD THIGHTS AREA, SKIN MOIST AND FLAKY. -TINEA PEDIS TOESX10 THICKEN BORWN COLOR TOE NAILS RECOMMENDATIONS: -OUT PATIENT PODIATRY / VASCULA FOLLOW UP -ENCOURAGE INCREASE OF MOBILITY -KEEP SKIN DRY AND CLEAN AT ALL TIMES, PLEASE CHECK Q2H AND PRN FOR MOISTURE - CLEANSE LEFT THIGH AND BLE WITH NS. AND APPLY XEROFORM DRESSING COVER WITH DRY DRESSING AND MARTIN BANDAGE QM-W-F AND PRN IF SOILING -OFFLOAD BILATERAL HEELS BY PLACING PILLOWS UNDER CALVES UNLESS OTHERWISE CONTRAINDICATED -PRESSURE REDISTRIBUTION SURFACE THERAPY BY POSITIONING PILLOWS -ENCOURAGE TURN AND REPOSITION Q2H, OFFLOAD SACRALCOCCYX AND BUTTOCKS BY TURNING RIGHT AND LEFT -CONTINUE TO FOLLOW RD RECOMMENDATIONS ALL ABOVE RECOMMENDATIONS DISCUSSED WITH PRIMARY RN.
[2019-05-29 16:36] VITALS: BP 127/75
--- NOTE | 2019-05-29 16:56 | NUR ---
BLOOD SUGAR 118, NO INSULIN COVERAGE GIVEN. PT IN BED WATCHING TV. RESP EVEN AND UNLABORED. OXIMIZER AT 5LPM IN PLACE. PT TOLERATING NEW O2 THERAPY WELL. DENIES PAIN AT THIS TIME. CALL LIGHT WITHIN REACH. GUARD AT BEDSIDE ON ONE TO ONE SUPERVISION.
--- NOTE | 2019-05-29 18:59 | NUR ---
PT AAOX4. RESP EVEN AND UNLABORED. NO RESP DISTRESS NOTED. OXIMIZER AT 5LPM IN PLACE. TELE [address] READING NSR. IV CATH N/S LOCKED TO LW, PATENT, FLUSHED WITH GOOD BLOOD RETURN. PT DENIES PAIN AT THIS TIME. BLE WRAPPED IN CDI DRESSING. PT LEGS ELEVATED ON PILLOWS. CALL LIGHT WITHIN REACH. FALL PROTOCOL MAINTAINTED. GUARD AT BEDSIDE ON ONE TO ONE SUPERVISION. WILL ENDORSE ALL CARE TO NOC RN.
--- NOTE | 2019-05-29 19:27 | NUR ---
NORCO 5/325MG PO GIVEN FOR BLE LEG PAIN AND H/A 05/31. FLUIDS ENCOURAGED. RESP EVEN AND UNLABORED. NO RESP DISTRESS NOTED. CALL LIGHT WITHIN REACH.
--- NOTE | 2019-05-29 19:32 | NUR ---
RECEIVED PT FROM DAY SHIFT RN. PT AAOX4 DENIES HEADACHE OR DIZZINESS. BREATHING EVEN AND UNLABORED, ON OXYMIZER AT 5L/MIN WITH NO SOB NOTED. TELE 27 SR HR 78. PT DENIES CHEST PAIN OR PRESSURE. IV LW PATENT, SL. ABD DISTENDED, ACTIVE BOWEL SOUNDS. DENIES ABD PAIN/N/V. BLE EDEMA NOTED, BLE COVERED WITH BANDAGES. NO SIGNS OF DISTRESS NOTED. CALL BUTTON WITHIN REACH. SAFETY PRECAUTIONS IN PLACE. GUARD AT BEDSIDE. WILL CONTINUE TO MONITOR.
[2019-05-29 20:57] VITALS: BP 123/63
--- NOTE | 2019-05-30 00:15 | NUR ---
PT RESTING, BREATHING EVEN AND UNLABORED, NO SIGNS OF RESP DISTRESS NOTED. CALL BUTTON WITHIN REACH. SAFETY PRECAUTIONS IN PLACE. GUARD AT BEDSIDE. WILL MONITOR.
--- NOTE | 2019-05-30 02:19 | NUR ---
PT REPORTED HAVING LEG PAIN, 8/10. MEDICATED PER EMAR. WILL CONTINUE TO MONITOR.
--- NOTE | 2019-05-30 02:24 | NUR ---
PT REQUESTING FOR BREATHING TREATMENT AT THIS TIME. RT PAGED.
--- NOTE | 2019-05-30 03:46 | NUR ---
PT RESTING, BREATHING EVEN AND UNLABORED WITH NO SOB NOTED. NO SIGNS OF DISTRESS NOTED. CALL BUTTON WITHIN REACH. SAFETY PRECAUTIONS IN PLACE. GUARD AT BEDSIDE. WILL CONTINUE TO MONITOR.
--- NOTE | 2019-05-30 05:07 | NUR ---
PT SLEPT MOST OF THE NIGHT WITH NO SIGNS OF DISTRESS. PT ON OXYMIZER 5L/MIN WITH NO SOB NOTED. RT PROTOCOL. IV PATENT, SL. PT REPORTED BLE PAIN, MEDICATED PER EMAR WITH RELIEF. PT DENIES ANY PAIN AT THIS TIME. NO SIGNS OF ACUTE DISTRESS NOTED. MEDICATED PER EMAR. CALL BUTTON WITHIN REACH. SAFETY PRECAUTIONS IN PLACE. GUARD AT BEDSIDE. WILL CONTINUE TO MONITOR AND ENDORSE CARE TO DAY SHIFT RN.
[2019-05-30 06:20] VITALS: BP 147/81
[2019-05-30 07:17] LABS: PLATELET COUNT 347 x10^3mcL (130-400)
[2019-05-30 07:27] LABS: RED CELL DISTRIBUTION WIDTH 18.7 % (11.5-14.5)
--- NOTE | 2019-05-30 07:27 | NUR ---
PT AWAKE, DENIES ANY PAIN. NO SIGNS OF DISTRESS NOTED. ENDORSED CARE TO DAY SHIFT RN, ALL QUESTIONS ADDRESSED.
[2019-05-30 07:28] LABS: CALCIUM 8.9 mg/dL (8.5-10.1); CARBON DIOXIDE 30.2 mmol/L (21-32); CHLORIDE SERUM 103 mmol/L (98-107); GFR1 > 60 mL/min; GLUCOSE SERUM 109 mg/dL (74-106); POTASSIUM SERUM 4.1 mmol/L (3.5-5.1); SODIUM SERUM 140 mmol/L (136-145)
--- NOTE | 2019-05-30 08:44 | NUR ---
PATIENT SAT UP AT SIDE OF BED, C/O BLE 10/10 PAIN. ADMINISTERED ALL PO MEDS AND NORCO 1 TAB PO FOR PAIN. DR. MCDANIEL SEE PATIENT AT THIS TIME, INSTRUCT PATIENT ON THE IMPORTANCE OF INCENTIVE SPIROMETER AND ENCOURAGE TO USES Q 1H. NEED TO USE BIPAP AT NIGHT. PATIENT VERBALIZE UNDERSTAND. GUARDS REMAIN AT BEDSIDE.
[2019-05-30 10:15] VITALS: BP 111/78
--- NOTE | 2019-05-30 10:40 | NUR ---
SPOKE WITH OSTOMY RN FOR PICC RN PLUS, REGARDING PICC LINE PLACEMENT ORDER FOR PT. PROVIDED PT NAME AND ROOM NUMBER MADE AWARE THAT PICC LINE NURSE WILL BE MADE AWARE AND A CALL BACK IS TO BE EXPECTED.
--- NOTE | 2019-05-30 11:36 | NUR ---
PATIENT RESTING IN BED NO RESP DISTRESS NOTED, PER RT DECREASED O2 TO 3L OXYMIZER SAT 93% BLOOD SUGAR 116 NO COVERAGE NEEDED. GUARD REMAIN AT BEDSIDE.
[2019-05-30 12:23] VITALS: BP 116/73
--- NOTE | 2019-05-30 12:25 | NUR ---
PICC LINE CONSENT OBTAINED FROM PATIENT NO FURTHER QUESTION, INFORM PATIENT WAITING FOR PICC LINE TO CALL BACK FOR CONFIRMATION. NEEDS ANTICIPATED. GUARD REMAIN AT BEDSIDE. CALL LIGHT WITHIN REACH.
--- NOTE | 2019-05-30 13:47 | NUR ---
PATIENT RESTING IN BED WATCHING TV, ADMINISTERED AZTREONAM IVPB TO LW IV PATENT, NORCO 1 TAB PO FOR 1010 PAIN TO BLE. NEEDS MET. CONT TO MONITOR.
[2019-05-30 13:51] LABS: ATYPICAL LYMPH 1 %; BAND NEUTROPHIL 1 % (0-10); BASOPHIL 0 % (0-2); MONOCYTE 9 % (0-7); SEGMENTED NEUTROPHILS 73 % (37-75)
[2019-05-30 13:52] LABS: PLATELET MORPHOLOGY PLATELETS INCREASED
[2019-05-30 13:53] LABS: rbc morphology (normal/abnorm) ABNORMAL (NORMAL)
--- NOTE | 2019-05-30 14:56 | NUR ---
PATIENT IN BED AWAKEN WATCHING TV, REPORT PAIN IS 5/10. HEPLOCK IV ABX COMPLETED. CONT TO MONITOR.
--- NOTE | 2019-05-30 16:25 | NUR ---
PATIENT RESTING IN BED RT AT BEDSIDE GIVEN BREATHING, PER RT OXYMIZER AT 2L SAT 94% NO COVERAGE FOR BS 98. NEED MET. CALL LIGHT WITHIN REACH.
[2019-05-30 17:10] VITALS: BP 111/59
[2019-05-30 17:27] VITALS: BP 116/73
--- NOTE | 2019-05-30 18:34 | NUR ---
PATIENT RESTING IN BED NO COMPLAIN. NO RESP DISTRESS NOTED. GUARDS REMAIN AT BEDSIDE.
--- NOTE | 2019-05-30 20:00 | NUR ---
PATIENT RECEIVED RESTING IN BED AT THE START OF THE SHIFT. RESPIRATION EVEN AND UNLABORED, ON OXYMIZER AT 2L. OBESE. VOIDING FREELY, USES URINAL. GENERALIZED WEAKNESS. ERYTHEMA, +2-3 PITTING EDEMA TO BLE. BLE WRAPPED WITH KERLIX, WOUNDS TO BILAT FOOT COVERED WITH DRESSING. SALINE LOCK AT THE LEFT WRIST PATENT AND INTACT. CIM GUARDS AT THE BEDSIDE. WILL CONTINUE TO MONITOR.
[2019-05-30 21:39] VITALS: BP 125/77
--- NOTE | 2019-05-30 21:39 | NUR ---
PATIENT COMPLAINED OF BLE PAIN, PS 10/10. MEDICATED WITH NORCO 7.5/325 MG PO ORDERED. WILL CONTINUE TO MONITOR.
--- NOTE | 2019-05-31 01:27 | NUR ---
PATIENT COMPLAINED OF BLE PAIN, PS 10/10. MEDICATED WITH NORCO 5/325 MG PO ORDERED. WILL CONTINUE TO MONITOR.
--- NOTE | 2019-05-31 06:02 | NUR ---
PATIENT RESTING IN BED. RESPIRATION EVEN AND UNLABORED, ON BIPAP. IV SITE NO SIGN OF INFILTRATION. DENIES PAIN AT THIS TIME. ASSISTED WITH NEEDS. SAFETY OBSERVED. PLACED BED IN THE LOWEST POSITION. PLACED CALL LIGHT WITHIN REACH AT ALL TIMES.
[2019-05-31 06:05] VITALS: BP 108/58
--- NOTE | 2019-05-31 06:44 | NUR ---
PATIENT COMPLAINED OF BLE PAIN, PS 10/10. MEDICATED WITH NORCO 5/325 MG PO ORDERED. WILL CONTINUE TO MONITOR.
[2019-05-31 06:56] LABS: CALCIUM 8.7 mg/dL (8.5-10.1); CARBON DIOXIDE 31.9 mmol/L (21-32); CHLORIDE SERUM 103 mmol/L (98-107); CREATININE SERUM 1.1 mg/dL (0.7-1.3); GFR1 > 60 mL/min; GLUCOSE SERUM 97 mg/dL (74-106); POTASSIUM SERUM 4.1 mmol/L (3.5-5.1); SODIUM SERUM 142 mmol/L (136-145)
--- NOTE | 2019-05-31 07:25 | NUR ---
RECIEVED PT RESTING IN BED WITH NO C/O PAIN, DISTRESS, OR SOB. GUARD AT BEDSIDE. A/O X4. TELE #27 ON PT. IV INTACT AND PATENT TO LFA. NO REDNESS NOTED. SAFETY PRECAUTIONS IN PLACE, CALL LIGHT WITHIN REACH, WILLL MONITOR.
[2019-05-31 07:29] LABS: PLATELET COUNT 420 x10^3mcL (130-400); RED CELL DISTRIBUTION WIDTH 18.8 % (11.5-14.5)
[2019-05-31 08:34] VITALS: BP 104/51
[2019-05-31 11:36] LABS: BAND NEUTROPHIL 2 % (0-10); BASOPHIL 0 % (0-2); METAMYELOCTE 2 % (0-2); MONOCYTE 10 % (0-7); MYELOCYTE 1 % (0-2); SEGMENTED NEUTROPHILS 71 % (37-75)
[2019-05-31 11:37] LABS: rbc morphology (normal/abnorm) ABNORMAL (NORMAL)
[2019-05-31 11:40] LABS: ovalocyte/elliptocyte 1+
--- NOTE | 2019-05-31 11:47 | NUR ---
CALLED PICC LINE COMPANY AT [phone] AND SPOKE WITH NEGRA,EXPLAINED TO HER THAT PTCONSENT IS SIGNED AND DR RAMOS AND PT IS READY FOR THEM TO INSERT PICC LINE. SHE STATED THAT JONATHAN ORR WILL BE THE OBNE TO CALL ME BACK IN ABOUT 45 MIN WITH HIS ETA. CHARGE NOTIFIED.
--- NOTE | 2019-05-31 12:13 | NUR ---
PT C/O 08/01 VELÁSQUEZ, MEDICATED WITH NORCO PER EMAR, WILL REASSESS.
[2019-05-31 12:18] VITALS: BP 126/82
--- NOTE | 2019-05-31 12:36 | NUR ---
JUST SPOKE WITH DOMINGA FROM PICC LINE PLACEMENT AGAIN AND HE SAID IT WILL BE A COUPLE OF HOURS BEFORE HE HAS AN ETA.
--- NOTE | 2019-05-31 16:00 | NUR ---
PICC LINE INSRTED INTO RIGHT ARM TODAY. PLACEEMENT CONFIRMED WITH XRAY. APPROVAL TO USE PENDING. NO DISTRESS NOTED AND SITE CDI.
[2019-05-31 16:52] VITALS: BP 145/85
--- NOTE | 2019-05-31 19:58 | NUR ---
PT STABLE AT THIS TIME WITH NO C/O PAIN, DISTRESS, OR SOB. ALL CARES TOLERATED WELL. VS WNL. IV AND PICC LINE INTACT AND IV PATENT. NO REDNESS OR INFLAMMATION NOTED. GUARG AT BEDSIDE. SAFETY PRECAUTIONS IN PLACE, CALL LIGHT WITHIN REACH, ENDORSED CARE TO NIGHT NURSE.
--- NOTE | 2019-05-31 21:26 | NUR ---
Awake and verbally responsive. No respiratory distress noted on bipap. On oxymizer 6lpm earlier. Denies n/v. Denies pain. MILEY picc line patent and intact. OK to use per Dr. Serrato. Will cont.to monitor. Call light within reach.
[2019-05-31 21:57] VITALS: BP 108/53
--- NOTE | 2019-06-01 04:36 | NUR ---
Pt FOUND OFF OF BIPAP AND ON 6L OXYMIZER IN NO RESP DISTRESS. HHN GIVEN AT THIS TIME. WILL MONITOR.
--- NOTE | 2019-06-01 04:38 | NUR ---
Afebrile. No significant change in condition noted. Received HHneb treatments. On BiPAP at night. Remained on 6L oxymizer. Cont.on IV vancomycin, vibramycin p.o. BLE cellulitis with dressing intact. In no apparent distress.
[2019-06-01 06:52] VITALS: BP 129/64
--- NOTE | 2019-06-01 07:19 | NUR ---
RECEIVED REPORT FROM AMY CASTILLO. PATIENT SLEEPING COMFORTABLY IN BED WITH CIM OFFICERS AT BEDSIDE. PICC NOTED TO MILEY IS PATENT AND INTACT. NO REDNESS OR PAIN. TELE # [address] NO INDICATION OF CHEST PAIN. PATIENT ON O2 6L W/ OXIMIZER. NO DISTRESS NOTED. ALL QUESTIONS AND CONCERNS ADDRESSED.
[2019-06-01 09:00] VITALS: BP 107/54
--- NOTE | 2019-06-01 09:56 | NUR ---
DR RAMOS IN TO SEE AND ASSESS PATIENT AND DISCUSS PLAN OF CARE. DISCUSSED CONSULTATION WITH INFECTIOUS DISEASE DOCTOR FOR RECOMMENDATIONS ON CURRENT TREATMENT. PT VERBALIZED UNDERSTANDING AND HAD NO QUESTIONS.
[2019-06-01 12:42] VITALS: BP 123/78
--- NOTE | 2019-06-01 13:25 | NUR ---
CALLED PHARMACY TO NOTIFY OF VANCO TROUGH 9.5 PHARMACIST OK GIVE VANCO.
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
--- NOTE | 2019-06-01 16:58 | NUR ---
IN TO SEE PATIENT TO CHECK BLOOD SUGAR (114) NOACTION REQUIRED, ADMINISTER COUMADIN, AND ADMINISTER NORCO FOR LEG PAIN 07/01. PT RESTING IN BED WITH CIM OFFICERS AT BEDSIDE. ALL NEEDS MET.
[2019-06-01 17:41] VITALS: BP 95/45
--- NOTE | 2019-06-01 19:28 | NUR ---
REPORT GIVEN TO MICAELA CASTILLO. PATIENT RESTING COMFORTABLY IN BED WITH CIM OFFICER AT BEDSIDE. ALL NEEDS MET. ALL QUESTIONS AND CONCERNS ADDRESSED. ALL CARES ENDORSED.
--- NOTE | 2019-06-01 19:45 | NUR ---
RECIEVED PT RESTING IN BED WITH SECURITY PATROL OFFICER AT BEDSIDE, ASSESSMENT PERFORMED AT THIS TIME, PT A/OX4 NO COMPLAINTS OF VELÁSQUEZ OR DIZZINESS, PT DENIES PAIN OR SOB AT THIS TIME, SAFETY PRECAUTIONS IN PLACE, WILL CONTINUE TO MONITOR
--- NOTE | 2019-06-01 21:15 | NUR ---
PT COMPLAINING OF INSOMNIA, ASKING FOR SOMETHING FOR SLEEP, ADMINISTERED AMBIEN PER PHYSICIAN ORDER.
[2019-06-01 22:53] VITALS: BP 128/83
--- NOTE | 2019-06-01 23:40 | NUR ---
PT SLEEPING IN BED WITH NO SIGNS OF ACUTE DISTRESS AT THIS TIME, RESPIRATIONS EVEN AND UNLABORED, DEMAND MANAGER AT BEDSIDE, SAFETY PRECAUTIONS IN PLACE, WILL CONTINUE TO MONITOR
--- NOTE | 2019-06-02 01:45 | NUR ---
PT RESTING IN BED, DENIES PAIN AT THIS TIME, DENIES CHEST PAIN/DISCOMFORT OR SOB. GROCERY MANAGER AT BEDSIDE, SAFETY PRECAUTIONS IN PLACE WILL CONTINUE TO MONITOR
--- NOTE | 2019-06-02 04:00 | NUR ---
PT COMPLAINING OF 8/10 PAIN TO THE BLE, MEDICATED WITH TORADOL PRN PER PHYSICIANS ORDER, WILL CONTINUE TO MONITOR.
--- NOTE | 2019-06-02 05:10 | NUR ---
PT SLEPT THROUGH NIGHT, COMPLAINED OF PAIN ONCE AND WAS TREATED WITH IV TORADOL WHICH WAS INEFFECTIVE, PO ADMIN OF NORCO RESOLVED PAIN, PT HAD NO EPISODES OF SOB OR CHEST PAIN, SAFETY PRECAUTONS MAINTAINED THROUGH NIGHT, WILL CONTINUE TO MONITOR AND ENDORSE CARE
[2019-06-02 06:25] VITALS: BP 126/77
[2019-06-02 06:30] LABS: CALCIUM 9.3 mg/dL (8.5-10.1); CARBON DIOXIDE 26.7 mmol/L (21-32); CHLORIDE SERUM 101 mmol/L (98-107); GFR1 > 60 mL/min; GLUCOSE SERUM 93 mg/dL (74-106); POTASSIUM SERUM 4.2 mmol/L (3.5-5.1); SODIUM SERUM 137 mmol/L (136-145)
[2019-06-02 07:07] LABS: PLATELET COUNT 469 x10^3mcL (130-400); RED CELL DISTRIBUTION WIDTH 18.6 % (11.5-14.5)
[2019-06-02 07:31] VITALS: BP 126/77
--- NOTE | 2019-06-02 08:00 | NUR ---
RECEIVED PATIENT FROM JONATHAN HINOJOSA. PATIENT CURRENTLY ASLEEP. NO SIGNS OF PAIN OR SOB. CIM GUARD AT BEDSIDE. WILL CONTINUE TO MONITOR AT THIS TIME AND AWAIT DR RAMOS TO SEE PATIENT. CALL LIGHT IN REACH.
[2019-06-02 08:13] VITALS: BP 130/71
--- NOTE | 2019-06-02 10:17 | NUR ---
SPOKE WITH DR RAMOS ABOUT PLAN OF CARE, STATED WE ARE WAITING FOR DR ROE CONSULT. DR RAMOS IN TO SPEAK WITH PATIENT. PATIENT AFTER BREATHING TREATMENT CONTINUES TO SAT AT 92%. PATIENT HAS STATES HE HAS PAIN IN HIS ABDOMEN AND LOWER EXTREMITIES. PRN NORCO GIVEN.
[2019-06-02 10:45] LABS: BAND NEUTROPHIL 1 % (0-10); BASOPHIL 0 % (0-2); METAMYELOCTE 1 % (0-2); MONOCYTE 8 % (0-7); MYELOCYTE 2 % (0-2); SEGMENTED NEUTROPHILS 74 % (37-75)
[2019-06-02 10:46] LABS: ovalocyte/elliptocyte 1+; rbc morphology (normal/abnorm) ABNORMAL (NORMAL)
[2019-06-02 12:58] VITALS: BP 125/72
--- NOTE | 2019-06-02 13:07 | NUR ---
PATIENT CONTINUES TO HAVE BLE PAIN. PRN TORADOL IVP ADMINISTERED. PATIENT ALSO STATES THAT HIS R LEG WRAP IS TOO TIGHT AND RE-WRAP WAS DONE. WILL CONTINUE TO MONITOR FOR O2 SAT AND FOR PAIN AT THIS TIME. CALL LIGHT IN REACH.
--- NOTE | 2019-06-02 14:16 | NUR ---
PHYSICAL THERAPY NOTE ATTEMPTED FOR PHYSICAL THERAPY SCHEDULED VISIT. PATIENT COULD NOT PARTICIPATE FOR TRANSFER TRAINING 2/2 PAIN 9/10 ON THE R LLE, WILL BE ATTEMPTED TOMORROW
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
[2019-06-02 16:03] VITALS: BP 112/73
--- NOTE | 2019-06-02 18:20 | NUR ---
PATIENT STATES THAT HIS LEG PAIN IS SLOWLY RETURNING. PRN TORADOL [address] MCDANIEL IN TO UPDATE PLAN OF CARE, AWARE THAT PATIENT IS BACK ON 5 LPM VIA OXYMIZER. STATES SHE WANTS PATIENT ON BIPAP TONIGHT. WILL ENDORSE TO ONCOMING NURSE. LEG DRESSING CONTINUE TO BE CDI. CALL LIGHT IN REACH. FIELD RADIO TECHNICIAN AT BEDSIDE.
[2019-06-02 19:40] VITALS: BP 118/72
--- NOTE | 2019-06-02 19:40 | NUR ---
RECEIVED REPORT FROM AM NURSE. PT IN BED RESTING. PT AAOX4, ABLE TO MAKE NEEDS KNOWN. ON TELE# 27 NSR, DENIES CP/PRESSURE. WEAK RIGHT PEDAL PULSE. EDEMA NOTED TO BLE. DIMISHED LUNG SOUNDS TO ANGIE BASES ON 5L OXYMIZER. BREATHING EVEN AND UNLABORED. NO SIGNS OF RESP DISTRESS NOTED. ABD ROUND AND NONDISTENDED, ACTIVE BOWEL SOUNDS X4 QUAD. LAST BM 06/01/19. DENIES N/V. VOIDS FREELY ON URINAL. GENERALIZED WEAKNESS. REDNESS TO BLE. DRESSING TO BLE CDI. PICC LINE TO MILEY PATENT AND INTACT, SITE FREE FROM REDNESS AND SWELLING. NO SIGNS OF ACUTE DISTRESS NOTED. BED AT LOWEST SETTING, SIDE RAILS X2 UP, CALL LIGHT WITHING REACH. WILL CONTINUE TO MONITOR.
--- NOTE | 2019-06-02 22:12 | NUR ---
PT C/O COUGH, REQUESTING COUGH SYRUP, BUT ONLY HAS TAB ORDER. CATALINAOR MADE AWARE, NEW ORDER FOR COUGH SYRUM MADE PER
--- NOTE | 2019-06-03 00:18 | NUR ---
PATIENT REFUSED BIPAP ON 06/02/19 @ 5 AND ON 06/03/19 @ 0015. WILL MONITOR.
--- NOTE | 2019-06-03 06:25 | NUR ---
PT SLEPT AT INTERVALS THROGHOUT THE NIGHT. BREATHING EVEN AND UNLABORED ON 5L OXYMIZER. NO SIGNS OF RESP DISTRESS NOTED. ALL NEEDS ASSESSED AND ATTENDED TO. BED AT LOWEST SETTING, SIDE RAILS X2 UP. NO ACUTE DISTRESS NOTED. CALL LIGHT WITHING REACH. WILL ENDORSE CARE TO AM NURSE.
[2019-06-03 06:33] LABS: BASOPHIL % 0.2 % (0-2)
[2019-06-03 06:55] VITALS: BP 110/59
[2019-06-03 07:22] LABS: PLATELET COUNT 480 x10^3mcL (130-400); RED CELL DISTRIBUTION WIDTH 18.6 % (11.5-14.5)
[2019-06-03 07:24] LABS: CALCIUM 8.5 mg/dL (8.5-10.1); CARBON DIOXIDE 30.3 mmol/L (21-32); CHLORIDE SERUM 102 mmol/L (98-107); CREATININE SERUM 1.1 mg/dL (0.7-1.3); GFR1 > 60 mL/min; GLUCOSE SERUM 100 mg/dL (74-106); POTASSIUM SERUM 4.2 mmol/L (3.5-5.1); SODIUM SERUM 139 mmol/L (136-145)
--- NOTE | 2019-06-03 07:43 | NUR ---
RECEIVED PATIENT FROM JONATHAN PATEL. PATIENT IN BED, GUARD AT BEDSIDE. PATIENT STATES THAT HE COULD NOT REALLY SLEEP LAST NIGHT. UPDATED PATIENT TO PLAN OF CARE FOR TODAY INCLUDING MEDICATIONS, BREATHING TREATMENT, AND PAIN CONTROL. WILL AWAIT FOR DR RAMOS TO COME IN TO SEE PATIENT. CALL LIGHT IN REACH.
[2019-06-03 09:43] VITALS: BP 102/69
--- NOTE | 2019-06-03 10:17 | NUR ---
PATIENT IN BED STATING THAT HIS LEG PAIN HAS RETURNED. PRN TORADOL 15 MG ADMINISTERED. AM MEDICATIONS ADMINISTERED. PATIENT AGREED TO HAVE DRESSINGS ON LEG CHANGED THIS AFTERNOON. WILL AWAIT DR RAMOS TO SEE PATIENT AND UPDATE TO PLAN OF CARE. CALL LIGHT IN REACH AT THIS TIME, GUARD AT BEDSIDE.
--- NOTE | 2019-06-03 12:42 | NUR ---
DR RAMOS IN TO SPEAK WITH PATIENT. NOTIFIED PATIENT THAT PATIENT NEEDS TO IMPROVE ON OXYGEN AND TO USE BIPAP AT NIGHT BEFORE CIM WILL RECIEVE PATIENT BACK. PATIENT VERBALIZES UNDERSTANDING. PRN NORCO PO GIVEN TO PATIENT, WILL ALSO DO DRESSING CHANGES TODAY. CALL LIGHT IN REACH, GUARD AT BEDSIDE.
--- NOTE | 2019-06-03 13:35 | NUR ---
PT PLACED ON BIPAP 10/27, BUR 14, 40% FIO2. SPO2 95%, HR 86. OXIMIZER LEFT TURNED ON BEDISDE, PT ADVISED IF FOR SOME REASON HE NEEDS TO REMOVE THAT MASK, THE OXIMIZER NEEDS TO BE PUT BACK ON AND HE MUST RING HIS CALL LIGHT TO LET US KNOW. PT ADVISED HE WILL TRY TO WEAR BIPAP FOR A FEW HRS. RN AWARE PT IS ON BIPAP. WILL CONTINUE TO MONITOR. PT IN NAD AT THIS TIME.
[2019-06-03 16:25] VITALS: BP 119/74
--- NOTE | 2019-06-03 16:30 | NUR ---
PATIENT WANTED OFF BIPAP, WAS ABLE TO TOLERATE FOR 3 HOURS. PT PLACED ON 5LPM OXIMIZER. PT DID STATE THAT HE WOULD WEAR IT AGAIN LATER TONIGHT FOR ANOTHER FEW HOURS - WILL NOTIFY PM SHIFT.
[2019-06-03 19:30] VITALS: BP 114/72
--- NOTE | 2019-06-03 19:30 | NUR ---
REPORT GIVEN TO RN AMANDA & JONATHAN BURROUGHS. MADE AWARE THAT PATIENT NEEDS TO COMPLY WITH BIPAP TONIGHT. PATIENT IN BED WITH NO COMPLAINTS. VERBALIZES UNDERSTANDING OF NEED FOR BIPAP TREATMENT TO WEAN OFF OF OXYGEN. GUARD AT BEDSIDE, CALL LIGHT IN REACH.
--- NOTE | 2019-06-03 19:30 | NUR ---
RECEIVED REPORT FROM AM NURSE. PT IN BED WATCHING TV. PT AAOX4, ABLE TO MAKE NEEDS KNOWN. ON TELE# 27 NSR, BP 114/72, HR 82. DENIES CP/PRESSURE AT THIS TIME. RIGHT WEAK PEDAL PULSE. EDEMA TO BLE NOTED. DIMINISHED LUNG SOUNDS TO ANGIE BASES. BREATHING EVEN AND UNLABORED ON 5L OXYMIZER O2 SAT AT 97%. ABD SOFT AND ROUND, ACTIVE BOWEL SOUNDS X4 QUAD. DENIES N/V. VOIDS FREELY ON URINAL. GENERALIZED WEAKNESS. CHAIRFAST. ERYTHEMA TO BLE COVERED WITH DRESSING, DRESSING CDI. WOUNDS TO RIGHT AND LEFT FOOT BETWEEN TOES CATHI. PICC LINE TO MILEY, FLUSHING WELL. SITE FREE FROM REDNESS AND SWELLING. BED AT LOWEST SETTING, SIDE RAILS X2 UP. CALL LIGHT WITHING REACH. WILL CONTINUE TO MONITOR.
--- NOTE | 2019-06-04 01:30 | NUR ---
PT IN BED SLEEPING COMFORTABLY. BREATHING EVEN AND UNLABORED ON BIPAP. NO ACUTE DISTRESS NOTED. BED AT LOWEST POSITION, SIDE RAILS X2 UP, CALL LIGHT WITHING REACH. WILL CONTINUE TO MONITOR.
--- NOTE | 2019-06-04 01:53 | NUR ---
PT WANTED TO BE OFF BIPAP. STRONGLY ENCOURAGE THE USE OF IT, EDUCATED HIM ABOUT BENEFITS. HE STATED HE WILL PUT IT BACK ON LATER. HE WANTS TO STAY ON THE OXYMIZER FOR A FEW HRS. WILL CONTINUE TO MONITOR.
--- NOTE | 2019-06-04 05:04 | NUR ---
PT SLEPT AT INTERVALS THROUGHOUT THE NIGHT. BREATHING EVEN AND UNLABORED ON 5L OXYMIZER. ENCOURAGED TO PUT THE BIPAP ON. PT REFUSED TO PUT IT BACK ON. NO ACUTE DISTRESS NOTED. ALL NEEDS ASSESSED AND ATTENDED TO. BED AT LOWEST SETTING. SIDE RAILS X2 UP. CALL LIGHT WITHING REACH. WILL ENDORSE CARE TO AM NURSE.
[2019-06-04 05:57] VITALS: BP 99/54
[2019-06-04 07:54] VITALS: BP 131/83
--- NOTE | 2019-06-04 07:58 | NUR ---
RECEIVED PATIENT FROM JONATHAN PATEL & JONATHAN BURROUGHS. PATIENT SEATED IN BED, HAS COMPLAINTS OF PAIN IN RLE. PRN TORADOL 15MG IVP GIVEN. REINFORCED TEACHING AND NEED FOR BIPAP USAGE. PATIENT ACKNOWLEDGES, STATES HE WILL DO TREATMENTS TODAY. NO OTHER COMPLAINTS AT THIS TIME. WILL CONTINUE TO MONITOR AND WAIT FOR DR RAMOS TO ARRIVE. CALL LIGHT IN REACH, GUARD AT BEDSIDE.
--- NOTE | 2019-06-04 08:47 | NUR ---
PATIENT FOUND ON 5LPM OXIMIZER THIS MORNING, SPO2 WAS 90-91% ON THIS DEVICE. PT WAS IN NAD, BUT AGREED TO WEAR THE BIPAP FOR A BIT. HE WAS PLACED ON BIPAP WITH NO COMPLICATIONS. HHN TX GIVEN INLINE WITH BIPAP. PT'S OXIMIZER WAS LEFT TURNED ON BEDSIDE AND PT WAS ADVISED IF HE NEEDED TO REMOVE THE BIPAP FOR ANY REASON TO MAKE SURE THE OXIMIZER WAS PUT ON IMMEDIATELY AND TO CALL US. HE WAS INSTRUCTED TO OTHERWISE CALL US FIRST IF HE WANTS TO COME OFF THE BIPAP.
[2019-06-04 09:36] LABS: CALCIUM 9.2 mg/dL (8.5-10.1); CARBON DIOXIDE 33.1 mmol/L (21-32); CHLORIDE SERUM 102 mmol/L (98-107); CREATININE SERUM 1.2 mg/dL (0.7-1.3); GFR1 > 60 mL/min; GLUCOSE SERUM 116 mg/dL (74-106); POTASSIUM SERUM 4.5 mmol/L (3.5-5.1); SODIUM SERUM 140 mmol/L (136-145)
[2019-06-04 10:00] LABS: BASOPHIL % 0.2 % (0-2)
[2019-06-04 10:10] LABS: RED CELL DISTRIBUTION WIDTH 18.5 % (11.5-14.5)
[2019-06-04 10:11] LABS: PLATELET COUNT 550 x10^3mcL (130-400)
[2019-06-04 11:31] VITALS: BP 104/58
--- NOTE | 2019-06-04 12:29 | NUR ---
DR MCDANIEL IN TO SPEAK WITH PATIENT. DECREASED PATIENT OXYGEN TO 4 LPM VIA OXYMIZER AND SUGGESTED PT FOR PATIENT TO BE UP TO CHAIR. WILL INFORM DR RAMOS WHEN HE ARRIVES. CALL LIGHT IN REACH, RT JALEEL AND GUARD IN ROOM.
--- NOTE | 2019-06-04 14:18 | NUR ---
PATIENT SEATED IN BED. HAS MILD COMPLAINTS OF LEG PAIN. PRN TORADOL [address] RAMOS IN TO SPEAK WITH PATIENT ABOUT PLAN OF CARE, STATES AT LEAST 1-[address] RAMOS. GUARD AT BEDSIDE, CALL LIGHT IN REACH AT THIS TIME.
--- NOTE | 2019-06-04 15:53 | NUR ---
PATIENT WENT ON BIPAP TODAY FROM [phone], WANTED A BREAK SO HE WAS THEN PLACED ON HIS OXIMIZER. PT PLACED BACK ON BIPAP TODAY AT 1545, WILL CONTINUE TO MONITOR.
[2019-06-04 15:58] VITALS: BP 134/65
--- NOTE | 2019-06-04 18:50 | NUR ---
PATIENT IN BED SLEEPING. NO S/S OF SOB OR CHEST PAIN. PATIENT ON 4 LLPM VIA OXYMIZER. SS REQUEST FOR HOME O2 AT [facility]. WILL ENDORSE TO ONCOMING NURSE. GUARD AT BEDSIDE. CALL LIGHT IN REACH.
[2019-06-04 19:10] VITALS: BP 119/71
--- NOTE | 2019-06-04 19:10 | NUR ---
RECEIVED PT AWAKE ALERT AND VERBALLY RESPONSIVE WITH GUARDS AT BEDSIDE.BREATHING EASY AND NON-LABORED.DIMINISHED BREATHSOUNDS.NO COUGHING/CONGESTION NOTED.TOLERATING OXIMIZER @ 4L/MIN .O2 SAT @ 92%ENCOURAGED USE OF INCENTIVE SPIROMETER AND DOING 1500.DENIES CHESTPAIN.BP 119/71 MMHG,HR 78.ABDOMEN FIRM AND DISTENDED,LAST BM 06/03/19.DRESSING TO BLE INTACT.KS 8/10 TO THROBBING PAIN TO BLE.WILL MEDICTAE ACCORDINGLY.WILL CONTINUE TO MONITOR.
--- NOTE | 2019-06-05 01:00 | NUR ---
PT PLACED ON BIPAP ORDERED.WILL CONTINUE TO MONITOR.
--- NOTE | 2019-06-05 02:44 | NUR ---
PT SLEEPING SOUNDLY AT THIS TIME.AMBIEN 10 MG PO ADMINISTERED EARLIER.REMAINS ON BIPAP AND TOLERATING WELL.GUARD AT BEDSIDE.WILL CONTINUE TO MONITOR.
--- NOTE | 2019-06-05 04:48 | NUR ---
PT SLEPT WELL.KEPT BIPAP ALL NIGHT AND TOLERATED.WELL.NO ASE NOTED FROM VANCOMYCIN IV ATB.MEICATED WITH TORADOL 15 MG IV X1 AND NORCO PO X1 FOR BLE PAIN WITH GOOD RELIEF.GUARDS AT BEDSIDE.ALL NEEDS MET.WILL CONTINUE TO MONITOR.
[2019-06-05 05:40] VITALS: BP 117/66
--- NOTE | 2019-06-05 06:00 | NUR ---
CLEANSED WOUND AND PICTURES TAKEN.PREMEDICATED WITH TORADOL 15 MG IVP AND TOLERATED WELL.WILL CONTINUE TO MONITOR.
[2019-06-05 06:53] LABS: CALCIUM 9.1 mg/dL (8.5-10.1); CARBON DIOXIDE 30.3 mmol/L (21-32); CHLORIDE SERUM 102 mmol/L (98-107); CREATININE SERUM 1.1 mg/dL (0.7-1.3); GFR1 > 60 mL/min; GLUCOSE SERUM 101 mg/dL (74-106); POTASSIUM SERUM 4.4 mmol/L (3.5-5.1); SODIUM SERUM 139 mmol/L (136-145)
[2019-06-05 07:03] LABS: BASOPHIL % 0.3 % (0-2)
[2019-06-05 07:09] LABS: PLATELET COUNT 501 x10^3mcL (130-400); RED CELL DISTRIBUTION WIDTH 18.5 % (11.5-14.5)
[2019-06-05 07:16] LABS: rbc morphology (normal/abnorm) ABNORMAL (NORMAL)
--- NOTE | 2019-06-05 07:56 | NUR ---
A+OX4, NO RESPRIATORY DISTRESS NOTED, DENIES PAIN, TELE 11, PULSES MODERATE AND EQUAL ANGIE, EDEMA BLE, LUNG SOUNDS DIMINISHED, OXYMIZER 4L, USES BIPAP PRN, BOWEL SOUNDS ACTIVE, VOIDING FREELY, GENERALIZED WEAKNESS, BEDFAST, WOUNDS TO BLE WITH DRESSING AND NYSTATION POWDER TO TOES BOTH FEET, PICC LINE R UPPER ARM SALINE LOCKED, SITE WNL.
[2019-06-05 09:35] VITALS: BP 127/70
--- NOTE | 2019-06-05 09:46 | NUR ---
PT RESTING IN BED, NO RESPIRATORY DISTRESS NOTED, COMPLAINING OF BLE PAIN AND GENERALIZED PAIN, NORCO PO GIVEN, CALL LIGHT WITHIN REACH, GAURD AT BEDSIDE.
--- NOTE | 2019-06-05 11:50 | NUR ---
PT RESTING IN BED, NO RESPIRATORY DISTRESS NOTED, DENIES PAIN, GAURD AT BEDSIDE, CALL LIGHT WITHIN REACH.
[2019-06-05 13:01] VITALS: BP 139/77
--- NOTE | 2019-06-05 14:06 | NUR ---
PT COMPLAINING OF BLE PAIN AND GENERALIZED PAIN, NORCO PO GIVEN, NO RESPIRATORY DISTRESS NOTED, GAURD AT BEDSIDE. CALL LIGHT WITHIN REACH.
--- NOTE | 2019-06-05 14:12 | NUR ---
PER PHARMACIST, OKAY TO GIVE VANCO WITH VANCO TROUGH 17.5.
--- NOTE | 2019-06-05 14:19 | NUR ---
PT PLACED ON BIPAP, FIO2 TITRATED DOWN TO 35%. SPO2 96. WILL CONTINUE TO MONITOR
[2019-06-05 14:44] VITALS: BP 139/77
--- NOTE | 2019-06-05 17:13 | NUR ---
PT COMPLAINING OF 10/10 GENERALIZED PAIN, TORADOL IVP GIVEN, NO RESPIRATORY DISTRESS NOTED, CALL LIGHT WITHIN REACH. GAURD AT BEDSIDE.
[2019-06-05 17:59] VITALS: BP 134/78
--- NOTE | 2019-06-05 18:45 | NUR ---
PT RESTING IN BED, COMPLAINING OF 7/10 GENERALIZED PAIN AND BLE PAIN, NORCO PO GIVEN, NO RESPRIATORY DISTRESS NOTED, CALL LIGHT WITHIN REACH, GAURD AT BEDSIDE.
--- NOTE | 2019-06-05 19:27 | NUR ---
ENDORSED CARE TO HERMINIA CASTILLO.
--- NOTE | 2019-06-05 19:39 | NUR ---
RECEIVED PATIENT IN BED AWAKE, ALERT AND ORIENTED, DENIES PAIN TO BLE THIS TIME, PATIENT MEDICATED EARLIER BY AM SHIFT. TELE#11 NSR ON MONITOR. BLE SWELLING NOTED, PATIENT ON COUMADIN PO. BREATHING EASY AND NONLABOR ON 4 L HUMIDIFIER, PATIENT USE BIPAP NEEDED, RT PROTOCOL. PICC LINE TO RT ARM INPLACE. WILL CONTINUE TO MONITOR. CALL LIGHT WITHIN REACH. CIM OFFICERS AT BEDSIDE.
[2019-06-05 21:36] VITALS: BP 119/70
--- NOTE | 2019-06-06 05:30 | NUR ---
SLEPT AT LONG INTERVALS, DENIES PAIN AND DISCOMFORT THE ENTIRE SHIFT. ALL NEEDS ATTENDED. NO SIGNIFICANT CHANGES IN CONDITION NOTED.
[2019-06-06 06:08] VITALS: BP 123/69
[2019-06-06 06:40] LABS: CALCIUM 9.6 mg/dL (8.5-10.1); CARBON DIOXIDE 26.8 mmol/L (21-32); CHLORIDE SERUM 103 mmol/L (98-107); CREATININE SERUM 1.1 mg/dL (0.7-1.3); GFR1 > 60 mL/min; GLUCOSE SERUM 97 mg/dL (74-106); POTASSIUM SERUM 4.7 mmol/L (3.5-5.1); SODIUM SERUM 140 mmol/L (136-145)
[2019-06-06 06:59] LABS: PLATELET COUNT 522 x10^3mcL (130-400); RED CELL DISTRIBUTION WIDTH 18.4 % (11.5-14.5)
--- NOTE | 2019-06-06 07:30 | NUR ---
RECEIVED PT FROM FEEDER OPERATOR AUTOMATIC. PT AWAKE, ALERT A/OX4. DENIES HEADACHE. PT ON 4L WITH DIMINISHED LUNG SOUNDS. PT ON TELE 11, DENIES CHEST PAIN AT THIS TIME. PT NOTED TO HAVE SWELLING TO BLE, PT REPORTS PAIN TO RIGHT LEG "10/31". WILL MEDICATE PRN. PT HAS MILEY PICC. C/D/I SALINE LOCKED. ACTIVE BOWEL SOUNDS NOTED. DENIES ABDOMINAL PAIN. NO ISSUES IDENTIFIED WITH ELIMINATION AT THIS TIME. PT HAS WOUNDS TO BILATERAL FEET. PT NOTED TO HAVE GENERALIZED WEAKNESS. SAFETY MEASURES IN PLACE, BED LOW AND LOCKED. GUARD AT BEDSIDE.
[2019-06-06 08:20] LABS: BAND NEUTROPHIL 0 % (0-10); BASOPHIL 0 % (0-2); MONOCYTE 6 % (0-7); SEGMENTED NEUTROPHILS 75 % (37-75)
[2019-06-06 08:23] LABS: rbc morphology (normal/abnorm) ABNORMAL (NORMAL)
[2019-06-06 08:24] LABS: PLATELET MORPHOLOGY PLATELETS INCREASED
[2019-06-06 09:30] VITALS: BP 122/71
--- NOTE | 2019-06-06 09:30 | NUR ---
MORNING MEDS ADMINISTERED ORDERED. PT COMPLAINING OF PAIN "12/" TO BILATERAL LEGS. NORCO ADMINISTERED ORDERED PRN. NO OTHER ACUTE DISTRESS NOTED AT THIS TIME.
--- NOTE | 2019-06-06 10:30 | NUR ---
PT REPORTS "SOME RELIEF" AFTER PAIN MED ADMINISTRATION. PT DENIES ANY SOB OR BREATHING DIFFICULTY AT THIS TIME.
--- NOTE | 2019-06-06 11:45 | NUR ---
BLOOD SUGAR 89, NO COVERAGE NEEDED. ALL NEEDS MET AT THIS TIME.
[2019-06-06 13:12] VITALS: BP 108/70
--- NOTE | 2019-06-06 14:30 | NUR ---
PT COMPLAINING OF PAIN TO BILATERAL LEGS 08/01. NORCO ADMINISTERED ORDERED PRN (SEE EMAR).
--- NOTE | 2019-06-06 15:23 | NUR ---
PHYSICAL THERAPY DAILY NOTES CO-SIGN All documentation done by the Custom Bow Maker for 06/06/19 has been reviewed. I agree with the documentation. Reviewed/Co-Signed by: Miracle Davenport PT Documentation Done by:KENNETH LOVELL PTA
--- NOTE | 2019-06-06 16:26 | NUR ---
PT RESTING COMFORTABLY AT THIS TIME. NO ACUTE DISTRESS NOTED. GUARD AT BEDSIDE. SAFETY MEASURES MAINTAINED.
[2019-06-06 18:01] VITALS: BP 108/65
--- NOTE | 2019-06-06 19:01 | NUR ---
PT STABLE AT THIS TIME. ALL NEEDS MET THROUGHOUT SHIFT. WILL CONTINUE TO MONITOR AND ENDORSE CARE TO DUSTING AND BRUSHING MACHINE OPERATOR.
--- NOTE | 2019-06-06 19:32 | NUR ---
RECEIVED PATIENT IN BED AWAKE, ALERT AND ORIENTED WITH NO C/O PAIN AND DISCOMFORT AT THIS TIME. BREATHING EASYA ND NONLABOR SATTING AT 98% ON O2 AT 4L VIA NC. TELE#11 NSR ON MONITOR, DENIES CHESTPAIN. ABDOMEN ROUND, OBESE AND NON TENDER WITH ACTIVE BS. PICC LINE TO RT UPPER ARM INTACT. WILL CONTINUE TO MONTIOR. CIM OFFICERS AT BEDSIDE.
[2019-06-06 21:36] VITALS: BP 107/63
--- NOTE | 2019-06-07 02:21 | NUR ---
SLEEPING THIS TIME BREATHING EASYA ND NONLABOR ON O2 AT 4L VIA NC. CIM OFFICERS AT BEDSIDE. WILL CONTINUE TO MONITOR.
--- NOTE | 2019-06-07 05:28 | NUR ---
SLEPT AT LONG INTERVALS. DENIES PAIN AND DISCOMFORT THE ENTIRE SHIFT. NO SIGNIFICANT CHANGES IN CONDITION NOTED.
[2019-06-07 06:14] VITALS: BP 105/65
--- NOTE | 2019-06-07 08:00 | NUR ---
HANDOFF REPORT RECEIVED. PATIENT IN BED WITH O2 AT 4LPM IN USE. STATED: " MY RIGHT LEG PAIN IS BETTER...7 PAIN LEVEL. BILATERAL LOWER EXTREMITIES ELEVATED OVER A PILLOW. NOTED LEG DRESSINGS INTACT. GUARD AT BEDSIDE. CALL HERRERA WITHIN REACH.
[2019-06-07 09:28] VITALS: BP 95/54
[2019-06-07 11:59] VITALS: BP 97/63
--- NOTE | 2019-06-07 13:30 | NUR ---
PATIENT UP IN WHEELCHAIR WITH PT ASSIST.
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
--- NOTE | 2019-06-07 14:28 | NUR ---
1. Recommend continuing cardiac diet w/Prosource BID
--- NOTE | 2019-06-07 15:06 | NUR ---
TAKING A NAP AT THIS TIME. NOT IN ANY DISTRESS.
[2019-06-07 17:09] VITALS: BP 117/60
--- NOTE | 2019-06-07 17:14 | NUR ---
SEEN BY DR. MCDANIEL AT 1620. BILATERAL LEG DRESSINGS DONE. GIVEN NORCO FOR LEG PAIN. CALL HERRERA WITHIN REACH. GUARD IN ATTENDANCE.
--- NOTE | 2019-06-07 19:10 | NUR ---
HANDOFF REPORT GIVEN TO JONATHAN BURROUGHS. PATIENT ASLEEP.
[2019-06-07 19:35] VITALS: BP 104/68
--- NOTE | 2019-06-07 19:35 | NUR ---
RECEIVED PT AWAKE ALERT AND VERBALLY RESPONSIVE.BREATHING EASY AND NON-LABORED.NO COUGHING/CONGESTION NOTED.DIMINISHED BREATHSOUNDS.TOLERATING O2 2 3L/MIN VIA N/C.O2 SAT @ 93%.ENCOURAGED USE OF INCENTIVE SPIROMETER.DENIES CHESTPAIN AT THIS TIME.BP 104/68 MMHG,HR 87.GUARDS AT BEDSIDE.WY 7/10 TO BLE.BLE DRESSING CDI,SOME SWELLING NOTED TO BLE.WILL CONTINUE TO MONITOR.
--- NOTE | 2019-06-08 04:46 | NUR ---
PT SLEPT WELL.BIPAP ON ALL NIGHT AND TOLERATED WELL.MEDICATED WITH NORCO PO X1 FOR BLE PAIN WITH GOOD RELIEF.GUARDS AT BEDSIDE.ALL NEEDS MET.WILL CONTINUE TO MONITOR.
[2019-06-08 05:41] VITALS: BP 102/68
--- NOTE | 2019-06-08 06:40 | NUR ---
PICC LINE DRESSING CGANGE ASEPTICALLY.2 PORTS FLUSHES WELL.TOLERATED PROCEDURE.
--- NOTE | 2019-06-08 07:59 | NUR ---
RECEIVED PATIENT FROM JONATHAN BURROUGHS. PATIENT CURRENTLY SLEEPING IN BED. GUARD IN ROOM AT THIS TIME. WILL SPEAK WITH PATIENT ABOUT PLAN OF CARE FOR TODAY AND WILL WAIT FOR DR RAMOS TO COME IN TO SPEAK WITH PATIENT. NO SIGNS OF SOB AT THIS TIME, ON O2 NC AT 3 TONGUE AND GROOVE MACHINE SETTER. CALL LIGHT IN REACH.
[2019-06-08 09:12] VITALS: BP 115/71
--- NOTE | 2019-06-08 10:10 | NUR ---
PATIENT IN BED AT THIS TIME. MILD COMPLAINTS OF LEG PAIN. PRN NORCO PO GIVEN TO PATIENT. DR MCDANIEL IN TO SPEAK WITH PATIENT, STATES SHE WOULD LIKE PATIENT TO CONTINUE TO WEAN DOWN O2. PATIENT AGREES. GUARD AT BEDSIDE. WILL CONTINUE TO MONITOR.
[2019-06-08 13:34] VITALS: BP 92/65
--- NOTE | 2019-06-08 15:30 | NUR ---
PATIENT IN BED RESTING. FURTHER COMPLAINTS OF LEG PAIN. PRN NORCO PO GIVEN. WILL CONTINUE TO MONITOR. PER GRAY PEREA TO TRANSFER PATIENT TO MED SURG. TELEMETRY UNIT RETURNED TO [facility]. CALL LIGHT IN REACH, GUARD AT BEDSIDE
--- NOTE | 2019-06-08 15:50 | NUR ---
PHYSICAL THERAPY DAILY NOTES CO-SIGN All documentation done by the Information Security Risk Analyst for 06/08/19 has been reviewed. I agree with the documentation. Reviewed/Co-Signed by: Miracle Davenport PT Documentation Done by:KENNETH LOVELL PTA FOR 06/07/19
[2019-06-08 16:43] VITALS: BP 91/59
[2019-06-08 17:27] VITALS: BP 91/59
--- NOTE | 2019-06-08 18:37 | NUR ---
PATIENT IN BED AT THIS TIME. NO COMPLAINTS OF PAIN, SOB, OR DISCOMFORT. WILL ENDORSE TO ONCOMING NURSE. GUARD AT BEDSIDE. WILL ENDORSE TO ONCOMING NURSE THAT PATIENT NEEDS TO CONTINUE BIPAP USAGE UNTIL DR MCDANIEL IN TO EVALUATE PATIENT TOMORROW. CALL LIGHT IN REACH.
[2019-06-08 19:15] VITALS: BP 98/65
--- NOTE | 2019-06-08 19:15 | NUR ---
RECEIVED PT AWAKE ALERT AND VERBALLY RESPONSIVE.BREATHING EASY AND NON-LABORED.O2 @ 3L/MIN VIA N/V.NO COUGHING/CONGESTION NOTED.DENIES CHESTPAIN.BP 98/65 MMHG,HR 73.DE 6/10 TO THROBBING PAIN TO BLE.DRESSING TO BLE WITH MARTIN WRAPPED INTACT.GUARDS AT BEDSIDE.WILL CONTINUE TO MONITOR.
--- NOTE | 2019-06-08 22:21 | NUR ---
CALLED DR. RAMOS AND RENEWED ORDER FOR AMBIEN 10 MG PO QHS PRN AND WILL CARRY OUT.
--- NOTE | 2019-06-09 04:51 | NUR ---
PT SLEPT WELL.ON BIPAP ALL NIGHT AND WELL TOLERATED.MEDICATED WITH NORCO 1 TAB PO X1 FOR BLE PAIN WITH GOOD RELIEF.GUARDS AT BEDSIDE.ALL NEEDS MET.WILL CONTINUE TO MONITOR.
--- NOTE | 2019-06-09 06:11 | NUR ---
CHANGE DRESSING TO BLE AND COVERED WITH KERLIZ AND SECURED WITH MARTIN WRAP.NORCO GIVEN AFTERWARDS.WILL ENDORSED TO AM NURSE.
[2019-06-09 06:19] VITALS: BP 101/65
--- NOTE | 2019-06-09 07:05 | NUR ---
RECEIVED BEDSIDE REPORT FROM TREATING INSPECTOR NURSE AT THIS TIME. PATIENT RESTING COMFORTABLY IN BED. NO APPARENT DISTRESS OR DISCOMFORT NOTED. 3L NC IN PLACE AND TOLERATING WELL. PATIENT DENIES CHEST PAIN/PRESSURE AT THIS TIME. PICC LINE MILEY PATENT AND INTACT. DRESSING TO BLE IN PLACE, CDI. ALL QUESTIONS AND CONCERNS ADDRESSED. ALL NEEDS ATTENDED TO. WILL CONTINUE TO MONITOR. GUARDS AT BEDSIDE TO PROMOTE PATIENT SAFETY.
[2019-06-09 08:16] VITALS: BP 122/72
--- NOTE | 2019-06-09 10:21 | NUR ---
ALL MORNING MEDICATIONS ADMINISTERED. PATIENT TOLERATED WELL. NO ADVERSE EFFECTS NOTED. ALL NEEDS ATTENDED TO. WILL CONTINUE TO MONITOR
--- NOTE | 2019-06-09 11:39 | NUR ---
PATIENT BLOOD SUGAR AT THIS TIME 90. NO INSULIN COVERAGE REQUIRED. ALL NEEDS ATTENDED TO. WILL CONTINUE TO MONITOR
--- NOTE | 2019-06-09 13:25 | NUR ---
PATIENT SITTING UP IN BED EATING LUNCH AT THIS TIME. PATIENT TOLERATING DIET WELL. NO APPARENT DISTRESS OR DISCOMFORT NOTED. ALL NEEDS ATTENDED TO. WILL COTINUE TO MONITOR
--- NOTE | 2019-06-09 15:22 | NUR ---
PHYSICAL THERAPY DAILY NOTES CO-SIGN All documentation done by the Hand Ii Cutter for 06/09/19 has been reviewed. I agree with the documentation. Reviewed/Co-Signed by: Miracle Davenport PT Documentation Done by:KENNETH LOVELL PTA
--- NOTE | 2019-06-09 16:30 | NUR ---
PATIENT BLOOD SUGAR 101 AT THIS TIME. NO INSULIN COVERAGE REQUIRED. ALL NEEDS ATTENDED TO. WILL CONTINUE TO MONITOR
[2019-06-09 17:17] VITALS: BP 97/66
--- NOTE | 2019-06-09 17:43 | NUR ---
PATIENT C/O RLE DRESSING IRRITATING HIM. REMOVED OLD DRESSING AND APPLIED XEROFORM DRESSING TO RLE AND REWRAPPED. PATIENT TOLERATED WELL. NO APPARENT DISTRESS OR DISCOMFORT NOTED. ALL NEEDS ATTENDED TO. WILL CONTINUE TO MONITOR
--- NOTE | 2019-06-09 18:29 | NUR ---
PATIENT RESTING COMFORTABLY IN BED AT THIS TIME. NO APPARENT DISTRESS OR DISCOMFORT NOTED. 3L NC IN PLACE AND PATIENT TOLERATING WELL. PICC LINE DOUBLE LUMEN PATENT AND INTACT. ALL QUESTIONS AND CONCERNS ADDRESSED. ALL NEEDS ATTENDED TO. SAFETY PRECAUTIONS MAINTAINED. GUARD AT BEDSIDE TO PROMOTE PATIENT SAFETY. WILL ENDORSE ALL CARE TO POSTAL SUPERINTENDENT NURSE
--- NOTE | 2019-06-09 19:45 | NUR ---
RECEIVED REPORT FROM DAY SHIFT RN. PT RESTING IN BED. NO SOB ON O2 2L VIA NC. BREATHING EVEN AND UNLABORED. NO DISTRESS NOTED. PICC LINE 2 LUMEN TO RUE, INTACT. SAFETY MEASURES IN PLACE. BED IN LOWEST POSITION. SIDE RAILS UP X2. INSTRUCTED PT TO USE THE CALL LIGHT FOR ASSISTANCE. CALL LIGHT WITHIN REACH. CIM GUARD AT BEDSIDE.
[2019-06-09 21:01] VITALS: BP 107/65
--- NOTE | 2019-06-09 21:57 | NUR ---
NORCO GIVEN FOR RIGHT FOOT THROBBING PAIN 07/01 AND AMBIEN GIVEN FOR INSOMNIA.
[2019-06-10 05:42] VITALS: BP 96/58
--- NOTE | 2019-06-10 06:23 | NUR ---
PT C/O RIGHT FOOT THROBBING PAIN 07/01. NORCO GIVEN.
--- NOTE | 2019-06-10 06:45 | NUR ---
PT SLEPT WELL DURING SHIFT. NO RESPIRATORY DISTRESS NOTED ON BIPAP AT NIGHT. ON O2 4L VIA NC AT THIS TIME. NO SOB NOTED. ON AND OFF PAIN TO RIGHT FOOT. MEDICATED PER ORDER. SAFETY MEASURES MAINTAINED. ALL NEEDS ATTENDED TO. WILL ENDORSE CONTINUITY OF CARE TO ONCOMING RN.
--- NOTE | 2019-06-10 07:14 | NUR ---
RECEIVED REPORT FROM TATE CASTILLO. PATIENT RESTING COMFORATBLY IN BED WITH CIM OFFICER AT BEDSIDE. PICC TO MILEY IS PATENT AND INTACT. NO REDNESS OR PAIN. PT ON O2 4L NC. NO C/O SOB AND NO DISTRESS NOTED. SHACKLE TO LT ANKLE NOTED WITH NO SKIN IRRITATION FROM SHACKLE. BLE WRAPPED WITH MARTIN BANDAGE AROUNDS ANKLES WITH DRY, FLAKY SKIN NOTED TO CALF AND VILLALOBOS BIALT. MILD REDNESS NOTED ALSO. LT KNEE WRAPPED WITH MARTIN BANDAGE. ALL DRESSINGS CDI. ALL QUESTIONS AND CONCERNS ADDRESSED.
[2019-06-10 08:10] VITALS: BP 106/64
--- NOTE | 2019-06-10 09:18 | NUR ---
IN TO SEE PATIENT AND ADMINISTER MEDICATION (SEE EMAR). PT RESTING COMFORTABLY IN BED WITH CIM OFFICER AT BEDSIDE. ALL NEEDS MET.
--- NOTE | 2019-06-10 13:00 | NUR ---
IN TO CHANGE DRESSINGS PER PATIENT THEY ARE TOO TIGHT AND NOT ALL WERE CHANGED YESTERDAY. LEGS CLEANED AND XEROFORM APPLIED AND COVERED WITH GAUZE AND GAUZE WRAP. LEFT KNEE ALSO CLEANED AND LEFT INTELLIGENCE ANALYST PER PATIENT REQUEST. ONLY A SMALL SCAB MEASURING 5MM X 5MM REMAINS. LOTION APPLIED TO DRY SCALY LEGS BILAT. PT TOLERATED IT WELL.
--- NOTE | 2019-06-10 14:55 | NUR ---
IN TO SEE PATIENT AND ASSESS NEEDS AFTER LUNCH. PER PT REQUEST I RECHECKED BLOOD GLUCOSE AND IT IS NOW 111. ALL OTHER NEEDS MET.
[2019-06-10 16:07] VITALS: BP 106/64
--- NOTE | 2019-06-10 18:58 | NUR ---
PATIENT RESTING COMFORTABLY IN BED WITH CIM OFFICER AT BEDSIDE. PT ON O2 3L NC. NO C/O SOB AND NO DISTRESS NOTED. PICC TO MILEY IS PATENT AND INTACT. NO REDNESS OR PAIN. WILL ENDORSE ALL CARE TO ONCOMING NURSE.
--- NOTE | 2019-06-10 19:15 | NUR ---
REPORT RECIEVED FROM DAY SHIFT RN. PATIENT WAS SEEN AND IS RESTING COMFORTBALY IN BED. NO DISTRESS NOTED. BREATHING EVEN AND UNLABORED ON 3L NC. NO SOB OR RESP DISTRESS NOTED. ON BIPAP AT NIGHT. DENIES CHEST PAIN/PRESSURE. NO C/O PAIN AT THIS TIME. PICC LINE TO THE RUE. SALINE LOCK. PATENT AND INTACT. NO REDNESS OR SWELLING NOTED. COMFORT AND SAFETY MEASURES IN PLACE. BED IS LOCKED AND IN THE LOWEST POSITION. CALL LIGHT IS WITHIN REACH. WILL CONTINUE TO MONITOR
[2019-06-10 20:37] VITALS: BP 100/66
--- NOTE | 2019-06-10 22:10 | NUR ---
C/O 7/10 PAIN IN RIGHT LEG. PRN NORCO WAS ADMINISTERED PRESCRIBED. EDUCATED PATIENT THAT DROWSINESS MAY OCCUR. NO DISTRESS NOTED. BREATHING EVEN. CALL LIGHT IS WITHIN REACH. WILL CONTINUE TO MONITOR AND REASSESS PAIN LEVEL.
--- NOTE | 2019-06-10 22:52 | NUR ---
PATIENT IS REQUESTING SLEEPING PILL. PRN AMBIEN WAS ADMINISTERED PRESCRIBED. NO DISTRESS NOTED. PAIN RELIEVED BY NORCO. BREATHING EVEN. CALL LIGHT IS WITHIN REACH. WILL CONTINUE TO MONITOR.
--- NOTE | 2019-06-11 01:14 | NUR ---
PATIENT IS RESTING IN BED WITH EYES CLOSED. ON BIPAP. BREATHING EVEN AND UNLABORED. NO DISTRESS NOTED. SO S/S OF PAIN NOTED. SAFETY MEASURES IN PLACE. CALL LIGHT IS WITHIN REACH. WILL CONTINUE TO MONITOR.
--- NOTE | 2019-06-11 05:10 | NUR ---
PATIENT SLEPT IN LONG INTERVALS THROUGHOUT THE NIGHT. NO ACUTE CHANGES NOTED. BREATHING EVEN. ON BIPAP AT THIS TIME. PICC LINE TO RUE. SALINE LOCK. PATENT AND INTACT. NO REDNESS OR SWELLING NOTED. C/O PAIN X1 AND MEDICATED WITH PRN NORCO WITH GOOD RELIEF. NO DISTRESS NOTED. SAFETY MEASURES IN PLACE. CALL LIGHT IS WITHIN REACH. WILL CONTINUE TO MONITOR AND ENDORSE CARE TO DAY SHIFT RN.
[2019-06-11 05:47] VITALS: BP 113/72
--- NOTE | 2019-06-11 05:48 | NUR ---
C/O 7/10 PAIN IN RIGHT LEG. MEDICATED WITH PRN NORCO PRESCRIBED. NO DISTRESS NOTED. BREATHING EVEN ON 3L NC. PATIENT REMOVED BIPAP. CALL LIGHT IS WITHIN REACH. WILL CONTINUE TO MONITOR AND REASSESS PAIN LEVEL.
[2019-06-11 07:11] LABS: BASOPHIL % 4.2 % (0-2); PLATELET COUNT 485 x10^3mcL (130-400); RED CELL DISTRIBUTION WIDTH 18.5 % (11.5-14.5)
[2019-06-11 07:12] LABS: rbc morphology (normal/abnorm) ABNORMAL (NORMAL)
[2019-06-11 07:15] LABS: CALCIUM 9.3 mg/dL (8.5-10.1); CARBON DIOXIDE 29.4 mmol/L (21-32); CHLORIDE SERUM 103 mmol/L (98-107); CREATININE SERUM 1.2 mg/dL (0.7-1.3); GFR1 > 60 mL/min; GLUCOSE SERUM 96 mg/dL (74-106); POTASSIUM SERUM 4.8 mmol/L (3.5-5.1); SODIUM SERUM 139 mmol/L (136-145)
--- NOTE | 2019-06-11 07:19 | NUR ---
RECEIVED REPORT FROM JASON CASTILLO. PATIENT RESTING COMFORTABLY IN BED WITH CIM OFFICER AT BEDSIDE. ALL NEEDS MET. PICC TO MILEY IS PATENT AND INTACT. NO REDNESS OR PAIN. PT ON O3 3L NC. NO C/O SOB AND NO DISTRESS NOTED. ALL QUESTIONS AND CONCERNS ADDRESSED.
--- NOTE | 2019-06-11 07:19 | NUR ---
RECEIVED REPORT FROM JASON CASTILLO. PATIENT RESTING COMFORTABLY IN BED WITH CIM OFFICER AT BEDSIDE. ALL NEEDS MET. PICC NOTE TO MILEY. NO REDNESS OR PAIN. PT ON O3 3L NC. NO C/O SOB AND NO DISTRESS NOTED. ALL QUESTIONS AND CONCERNS ADDRESSED.
[2019-06-11 08:27] VITALS: BP 113/72
--- NOTE | 2019-06-11 09:07 | NUR ---
IN TO ADMINISTER MEDICATION. PICC TO MILEY NOT FLUSHING. WILL NOTIFY DR RAMOS FOR ORDERS.
[2019-06-11 09:25] VITALS: BP 95/77
--- NOTE | 2019-06-11 10:08 | NUR ---
NOTIFIED DR RAMOS OF PICC NOT FLUSING. ORDERED TO START PERIPHERAL IV AND DC PICC.
[2019-06-11 17:12] VITALS: BP 126/70
--- NOTE | 2019-06-11 19:05 | NUR ---
REPORT RECIEVED FROM DAY SHIFT RN. PATIENT WAS SEEN AND IS RESTING COMFORTABLY IN BED. NO DISTRESS NOTED. BREATHING EVEN AND UNLABORED ON 3L NC. NO SOB OR RESP DISTRESS NOTED. DENIES CHEST PAIN. NO C/O PAIN. PICC LINE TO THE RUE. WITH TWO LUMENS. ONE LUMEN (PURPLE), PATENT AND INTACT. FLUSHES SLOW. BLE SKIN ISSUES. COMFORT AND SAFETY MEASURES IN PLACE. BED IS LOCKED AND IN THE LOWEST POSITION. SIDE RAILS UP X2. CALL LIGHT IS WITHIN REACH. WILL CONTINUE TO MONITOR.
--- NOTE | 2019-06-11 19:21 | NUR ---
REPORT GIVEN TO ARLETTE CASTILLO. PATIENT RESTING COMFORTABLY IN BED WITH CIM OFFICER AT BEDSIDE. ALL NEEDS MET. PICC TO MILEY IS PATENT AND INTACT. NO REDNESS OR PAIN. PT ON ROOM AIR. NO C/O SOB AND NO DISTRESS NOTED. ALL QUESTIONS AND CONCERNS ADDRESSED. ALL CARES ENDORSED.
[2019-06-11 20:42] VITALS: BP 104/72
--- NOTE | 2019-06-11 21:32 | NUR ---
PATIENT C/O 05/31 RIGHT LEG PAIN. PRN NORCO WAS ADMINSITERED PRESCRIBED. EDUCATED PATIENT THAT DROWSINESS MAY OCCUR. NO DISTRESS NOTED. CURRENTLY RECEIVING BREATHING TREATMENT. BREATHING EVEN. CALL LIGHT IS WITHIN REACH. WILL CONTINUE TO MONITOR AND REASSESS PAIN.
--- NOTE | 2019-06-11 23:21 | NUR ---
PATIENT IS HAVING INSOMNIA. REQUESTING SLEEPING PILL. PRN AMBIEN WAS ADMINISTERED PRESCRIBED. NO DISTRESS NOTED. BREATHING EVEN ON 3L NC. COMFORT AND SAFETY MEASURES IN PLACE. CALL LIGHT IS WITHIN REACH. WILL CONTINUE TO MONITOR.
--- NOTE | 2019-06-12 03:17 | NUR ---
PATIENT IS RESTING IN BED WITH EYES CLOSED. NO DISTRESS NOTED. BREATHING EVEN AND UNLABORED ON BIPAP. NO S/S OF PAIN NOTED. COMFORT AND SAFETY MEASURES IN PLACE. CALL LIGHT IS WITHIN REACH. WILL CONTINUE TO MONITOR.
--- NOTE | 2019-06-12 04:35 | NUR ---
REMOVED OLD DRESSINGS TO BLE. NO DRAINAGED NOTED. MILD ODOR NOTED. CLEANSED HEALING WOUNDS WITH NS AND PATTED DRY WITH GAUZE. CLOSED WITH XEROFOAM AND WRAPPED WITH KERLIX. (RIGHT ANKLE AREA AND LEFT ANKLE AREA). PATIENT TOLERATED WELL. CIRCULATION INTACT, WNL. NO DISTRESS NOTED. CALL LIGHT IS WITHIN REACH. WILL CONTINUE TO MONITOR.
--- NOTE | 2019-06-12 05:50 | NUR ---
PATIENT IS RESTING IN BED WATCHING TV. NO ACUTE CHANGES NOTED. BREATHING EVEN ON 3L NC. NO DISTRESS NOTED. PICC LINE TO RUE WITH TWO LUMENS. PURPLE LUMEN WITH SLOW FLUSH. RED LUMEN NOT PATENT. DR RAMOS AWARE. C/O PAIN X1 AND MEDICATIED WITH PRN NORCO WITH GOOD RELIEF. PATIENT WAS ON BIPAP AT NIGHT. WOUNDS NOTED TO BLE. DRESSING, CDI. SAFETY MEASURES IN PLACE. ALL NEEDS AND CONCERNS ADDRESSED. CALL LIGHT IS WITHIN REACH. WILL CONTINUE TO MONITOR.
[2019-06-12 05:52] VITALS: BP 108/80
--- NOTE | 2019-06-12 06:38 | NUR ---
PATIENT C/O 9/10 PAIN IN RIGHT FOOT. PRN NORCO ADMINISTERED PRESCRIBED. NO DISTRESS NOTED. BREATHING EVEN. CALL LIGHT IS WITHIN REACH. WILL ENDORSE CARE TO DAY SHIFT RN.
[2019-06-12 08:00] VITALS: BP 107/71
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
[2019-06-12 09:00] VITALS: BP 107/71
--- NOTE | 2019-06-12 12:42 | NUR ---
1. Recommend continuing cardiac diet w/Prosource BID
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
--- NOTE | 2019-06-12 16:16 | NUR ---
PHYSICAL THERAPY DAILY NOTES CO-SIGN All documentation done by the Rapid Transit Operator for 06/12/19 has been reviewed. I agree with the documentation. Reviewed/Co-Signed by: Miracle Davenport PT Documentation Done by:KENNETH LOVELL PTA
[2019-06-12 17:00] VITALS: BP 120/69
[2019-06-12 19:20] VITALS: BP 99/64
--- NOTE | 2019-06-12 19:37 | NUR ---
RESTING QUIETLY WITH 1 GUARD AT BEDSIDE. CONTINUES ON02 3L NC. WAITING FOR TO BE DELIVERED TO [facility] FOR PT. NO IV ABX. SL TO RT U EXT. NORCO AND TYLENOL HELPFUL FOR LEG AND BACK PAIN. VSS. GOOD APPETITE. CALL LIGHT WITH IN REACH.
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
--- NOTE | 2019-06-13 04:44 | NUR ---
PT SLEPT WELL.ON BIPAP AND TOLERATED WELL.MEDICATED WITH NORCO PO X1 FOR BLE PAIN WITH GOOD RELIEF.GUARDS AT BEDSIDE.ALL NEEDS MET.WILL CONTINUE TO MONITOR.
[2019-06-13 05:48] VITALS: BP 115/69
--- NOTE | 2019-06-13 06:06 | NUR ---
CHANGED DRESSING TO BLE.COVERED WITH KERLIX AND MARTIN WRAP.MEDICATED WITH NORCO 5/325 MG PO X1 AFTER TREATMENT,BIPAP OFF AND PLACED ON 3L/NC.WILL CONTINUE TO MONITOR.
[2019-06-13 07:37] LABS: CALCIUM 9.2 mg/dL (8.5-10.1); CARBON DIOXIDE 28.1 mmol/L (21-32); CHLORIDE SERUM 102 mmol/L (98-107); CREATININE SERUM 1.2 mg/dL (0.7-1.3); GFR1 > 60 mL/min; GLUCOSE SERUM 84 mg/dL (74-106); POTASSIUM SERUM 4.4 mmol/L (3.5-5.1); SODIUM SERUM 136 mmol/L (136-145)
[2019-06-13 07:45] LABS: BASOPHIL % 1.2 % (0-2)
[2019-06-13 08:05] VITALS: BP 107/66
[2019-06-13 08:34] LABS: PLATELET COUNT 479 x10^3mcL (130-400); RED CELL DISTRIBUTION WIDTH 18.5 % (11.5-14.5)
--- NOTE | 2019-06-13 10:09 | NUR ---
PATIENT RESTING IN BED NO COMPLAIN, ALL PO MEDS ADMINISTERED, HELD BP MEDS DUE TO LOW BP AND BUMEX GIVEN. NEEDS MET. GUARD REMAIN AT BEDSIDE. CALL LIGHT IN REACH. PICC LINE PURPLE PORT FLUSH BUT SLUGISH, RED PORT NOT ABLE TO FLUSH. CONT TO MONITOR.
--- NOTE | 2019-06-13 11:03 | NUR ---
PER DR. RICHARD DAI TO D/C ACCU-CHECK, BS BEEN WNL.
--- NOTE | 2019-06-13 14:36 | NUR ---
PATIENT AWAKE IN BED NO DISTRESS NOTED, NORCO 1 TAB PO FOR 9/10 PAIN TO BLE. GUARDS REMAIN AT BEDSIDE. CONT TO MONITOR.
--- NOTE | 2019-06-13 16:51 | NUR ---
PHYSICAL THERAPY DAILY NOTES CO-SIGN All documentation done by the Bung Driver for 06/13/19 has been reviewed. I agree with the documentation. Reviewed/Co-Signed by: Vasquez Petersen PT Documentation Done by:KENNETH LOVELL PTA
[2019-06-13 16:55] VITALS: BP 109/73
--- NOTE | 2019-06-13 17:46 | NUR ---
PATIENT SITTING UP IN BED EATING NO COMPLAINS. COUMADIN 10MG PO GIVEN, INR 1.8 NEEDS MET. WATER REFILL. CALL LIGHT WITHIN REACH. GUARDS AT BEDSIDE.
--- NOTE | 2019-06-13 18:31 | NUR ---
PATIENT RESTING IN BED WATCHING TV, NORCO 1 TAB PO ADMINISTERED FOR 710 BLE PAIN. NEEDS MET. GUARDS AT BEDSIDE. CALL LIGHT WITHIN REACH
--- NOTE | 2019-06-13 19:15 | NUR ---
PT RECEIVED A/O X4, ABLE TO MAKE NEEDS KNOWN. MED-SURG, DENIES CP/PRESSURE. WEAK PEDAL PULSES, TRACE EDEMA TO BLE. BREATHING IS EVEN AND UNLABORED ON 2L NC, CPAP AT NIGHT. ABD SOFT AND ROUND, DENIES N/V. VOIDS FREELY, URINAL AT BEDSIDE. GENERALIZED WEAKNESS, BEDFAST. OPEN WOUNDS TO BLE WITH ERYTHEMA AND FLAKY SKIN NOTED, DRSG IN PLACE, CDI. PT DENIES HAVING ANY PAIN AT THIS TIME. SL TO MILEY PICC LINE, DOUBLE LUMEN, PURPLE PORT PATENT, RED PORT NOT PATENT. GUARDS AT BEDSIDE. NO ACUTE DISTRESS NOTED. CALL LIGHT WITHIN REACH. WILL CONT TO MONITOR.
[2019-06-13 20:45] VITALS: BP 113/74
--- NOTE | 2019-06-13 22:02 | NUR ---
PT C/O DIFFICULTY SLEEPING, PRN AMBIEN GIVEN ORDERED. PT ALSO C/O 5/10 BLE PAIN, PRN TYLENOL GIVEN ORDERED. PT REQUESTING CPAP TO BE PLACED AT 2230, RT MADE AWARE. NO ACUTE DISTRES NOTED. CALL LIGHT WITHIN REACH. WILL CONT TO MONITOR.
--- NOTE | 2019-06-13 22:39 | NUR ---
PLACED PT ON CPAP 10. TOLERATING WELL. WILL CONT.TO MONITOR
--- NOTE | 2019-06-14 00:51 | NUR ---
PT RESTING IN BED WITH EYES CLOSED, BUT IS EASILY AROUSABLE. BREATHING IS EVEN AND UNLABORED ON CPAP, NO RESP DISTRESS NOTED. NO S/S OF PAIN OBSERVED. NO ACUTE DISTRESS NOTED. GUARD AT BEDSIDE. CALL LIGHT WITHIN REACH. WILL CONT TO MONITOR.
--- NOTE | 2019-06-14 05:18 | NUR ---
PT SLEPT WELL THROUGHOUTTHE EVENING. BREATHING IS EVEN AND UNLABORED ON 2L NC, NO RESP DISTRESS NOTED. PT C/O 8/10 BLE PAIN, PRN NORCO GIVEN ORDERED. NO ACUTE CHANGES ENCOUNTERED DURING SHIFT, ALL NEED MET AND ANTICIPATED. GUARDS AT BEDSIDE. CALL LIGHT WITHIN REACH. WILL ENDORSE CARE TO AM NURSE.
[2019-06-14 06:04] VITALS: BP 116/72
--- NOTE | 2019-06-14 07:22 | NUR ---
RECEIVED REPORT FROM JULIANO CASTILLO. PATIENT RESTING COMFORTABLY IN BED WITH CIM OFFICERS AT BEDSIDE. PICC TO MILEY HAS ONE PATENT LINE. NO REDNESS OR PAIN. PT ON 02 2L NC W/ CPAP AT NIGHT. PER NOC RN, IT WAS TOLERATED WELL. NO C/O SOB AND NO DISTRESS NOTED. SHACKLE NOTED TO LT ANKLE WITH NO SKIN IRRITATION NOTED. BLE WRAPPED WIT MARTIN BANDAGE. CDI. ALL QUESTIONS AND CONCERNS ADDRESSED.
--- NOTE | 2019-06-14 07:31 | NUR ---
WOUND CARE GIVEN. RLE CLEANSED WITH NS AND PATTED DRY, XEROFORM APPLIED WITH DRY KERLIX AND WRAPPED WITH MARTIN BANDAID, PT TOLERATED WELL. PT REFUSED WOUND CARE TO LLE, TRELL IS CDI. PT IN NO ACUTE DISTRESS. CONTINUITY OF CARE ENDORSED TO PHONG CASTILLO. ALL QUESTIONS AND CONCERNS ADDRESSED.
--- NOTE | 2019-06-14 08:58 | NUR ---
IN TO SEE PATIENT AND ADMINISTER MEDICATION (SEE eMAR). PATIENT RESTING IN BED WITH CIM OFFICERS AT BEDSIDE. ALL OTHER NEEDS MET.
[2019-06-14 09:18] VITALS: BP 98/62
--- NOTE | 2019-06-14 12:14 | NUR ---
IN TO SEE PATIENT AND ADMINISTER MEDICATION (SEE eMAR). PATIENT RESTING IN BED WITH CIM OFFICERS AT BEDSIDE. ALL OTHER NEEDS MET.
--- NOTE | 2019-06-14 15:48 | NUR ---
IN TO SEE PATIENT AND CHANGE DRESSING PER MD ORDER. BILAT MARTIN BANDAGES REMOVED, GAUZE ROLL REMOVED, XEROFORM REMOVED. BILAT LEGS CLEANED AND LOTION APPLIED TO DRY AREAS, WOUNDS CLEANSED WITH NORMAL SALINE, COVERED WITH XEROFORM, AND GAUZE ROLL AND SECURED WITH TAPE. PATIENT TOLERATED IT WELL.
--- NOTE | 2019-06-14 17:11 | NUR ---
PT LEFT ON RA FOR 1 HOUR SATURATION 89% PLACED BACK ON NC AT 1L/M
--- NOTE | 2019-06-14 17:16 | NUR ---
IN TO SEE PATIENT AND ADMINISTER MEDICATION (SEE eMAR). PATIENT RESTING IN BED WITH CIM OFFICERS AT BEDSIDE. ALL OTHER NEEDS MET.
[2019-06-14 17:20] VITALS: BP 117/71
--- NOTE | 2019-06-14 19:30 | NUR ---
RECEIVED PT RESTING IN BED, NO ACUTE DISTRESS NOTED. CIM PT, AOX4, DENIES VELÁSQUEZ/DIZZINESS. MEDSURG PT, DENIES CP. TRACE EDEMA BILAT LE, PT WITH BLE FOOT WOUND, DSG CHANGED IN DAYSHIFT CDI. RESP EVEN AND UNLABORED ON 1LNC, DENIES SOB. PT USES CPAP AT NIGHT, PT REQUESTING A SLEEP AID, WILL ORDER WITH DR RAMOS. ABD SOFT, ROUND, DENIES ABD PAIN. PT USES URINAL AT BEDSIDE, DENIES DYSURIA. GENERALIZED WEAKNESS, BEDFAST AT THIS TIME. PT USES W/C AT BEDSIDE. PT REPORTS NOT HAVING WALKED FOR SEVERAL YEARS. IV SITE TO MILEY, DUAL PORT PICC LINE, PURPLE PORT PATENT, SLIGHT RESISTANCE YET PT DENIES PAIN WITH FLUSHING. ALL COMFORT AND SAFETY MEASURES PROVIDED FOR, CALL LIGHT WITHIN REACH, BED IN LOWEST POSITION, WILL CONTINUE TO MONITOR.
--- NOTE | 2019-06-14 19:46 | NUR ---
REPORT GIVEN TO JUSTIN CASTILLO. PATIENT RESTING COMFORTABLY IN BED WITH CIM OFFICER AT BEDSIDE. ALL NEEDS MET. PICC TO MILEY IS PATENT AND INTACT. NO REDNESS OR PAIN. PT ON O2 1L NC. NO C/O SOB AND NO DISTRESS NOTED. ALL QUESTIONS AND CONCERNS ADDRESSED.
[2019-06-14 20:57] VITALS: BP 105/71
--- NOTE | 2019-06-14 22:30 | NUR ---
PHONED RT IN REGARDS TO PT REQUESTING TO BE STARTED ON CPAP. PT PREMEDICATED WITH AMBIEN FOR INSOMNIA. CALL LIGHT WITHIN REACH, BED IN LOWEST POSITION, WILL CONTINUE TO MONITOR.
[2019-06-15 04:43] VITALS: BP 97/58
--- NOTE | 2019-06-15 05:15 | NUR ---
PT RESTED IN INTERVALS DURING SHIFT, NO ACUTE CHANGES OCCURRING OVERNIGHT. PT TOLERATED CPAP WELL AT NIGHT, MEDICATE X1 WITH AMBIEN FOR INSOMNIA PRIOR TO STARTING CPAP. PT REPORT LONGER COMPLIANCE THIS WAY. PICC LINE REMAINS PATENT TO MILEY, PURPLE PORT PATENT ONLY. PT REMAINS PAIN UNDER CONTROL AT THIS TIME. ALL COMFORT AND SAFETY MEASURES PROVIDED FOR, CALL LIGHT WITHIN REACH, BED IN LOWEST POSITION, WILL CONTINUE TO MONITOR.
--- NOTE | 2019-06-15 07:10 | NUR ---
RECEIVED BEDSIDE REPORT FROM MOTION PICTURE ACTOR NURSE AT THIS TIME. PATIENT RESTING COMFORTABLY IN BED. NO APPARENT DISTRESS OR DISCOMFORT NOTED. 1L NC IN PLACE AND PATIENT TOLERATING WELL. BREATHING EVEN AND UNLABORED. NO RESPIRATORY DISTRESS NOTED. PATIENT DENIES SHORTNESS OF BREATH. PATIENT DENIES CHEST PAIN/PRESSURE AT THIS TIME. PATIENT HAS PICC LINE TO MILEY. ONE LUMEN PATENT OTHER IS NOT PATENT. ALL QUESTIONS AND CONCERNS ADDRESSED. ALL NEEDS ATTENDED TO. GUARD AT BEDSIDE TO PROMOTE PATIENT SAFETY. WILL CONTINUE TO MONITOR
--- NOTE | 2019-06-15 07:34 | NUR ---
ENDORSED ALL CARE TO DAYSHIFT NURSE, NO ACUTE DISTRESS NOTED. ALL COMFORT AND SAFETY MEASURES PROVIDED FOR, ALL QUESTIONS AND CONCERNS ADDRESSED, CALL LIGHT WITHIN REACH, BED IN LOWEST POSITION.
[2019-06-15 09:26] VITALS: BP 113/74
--- NOTE | 2019-06-15 10:59 | NUR ---
ALL MORNING MEDICATIONS ADMINISTERED. PATIENT TOLERATED WELL. NO ADVERSE EFFECTS NOTED. NO APPARENT DISTRESS OR DISCOMFORT NOTED. ALL NEEDS ATTENDED TO. WILL CONTINUE TO MONITOR
[2019-06-15 12:02] VITALS: BP 113/74
--- NOTE | 2019-06-15 13:13 | NUR ---
PATIENT C/O 7/10 PAIN TO BLE AT THIS TIME. PATIENT MEDICATED WITH NORCO PRN. PATIENT TOLERATED WELL. NO ADVERSE EFFECTS NOTED. ALL NEEDS ATTENDED TO. WILL CONTINUE TO MONITOR
[2019-06-15 17:24] VITALS: BP 102/58
--- NOTE | 2019-06-15 17:55 | NUR ---
PATIENT SITTING UP IN BED EATING DINNER AT THIS TIME. PATIENT TOLERATING DIET WELL. NO APPARENT DISTRESS OR DISCOMFORT NOTED. ALL NEEDS ATTENDED TO. WILL CONTINUE TO MONITOR
--- NOTE | 2019-06-15 18:34 | NUR ---
PATIENT RESTING COMFORTABLY IN BED AT THIS TIME. NO APPARENT DISTRESS OR DISCOMFORT NOTED. IV PATENT AND INTACT. ALL QUESTIONS AND CONCERNS ADDRESSED. ALL NEEDS ATTENDED TO. SAFETY PRECAUTIONS MAINTAINED. GUARD AT BEDSIDE TO PROMOTE PATIENT SAFETY. WILL ENDORSE ALL CARE TO DENTAL PRACTICE MANAGER NURSE
--- NOTE | 2019-06-15 19:35 | NUR ---
RECEIVED PT RESTING IN BED, NO ACUTE DISTRESS NOTED. CIM PT, AOX4, DENIES VELÁSQUEZ/DIZZINESS. MEDSURG PT, DENIES CP. NO EDEMA NOTED BLE, PT WITH BLE FOOT WOUND, DSG CHANGED IN DAYSHIFT CDI 06/14, PT AWAITING XRAY OF LEFT FOOT, DSG OFF. WILL CHANGED DSG AFTER EXAM. RESP EVEN AND UNLABORED ON RA, DENIES SOB. PT USES CPAP AT NIGHT, PT REQUESTING A SLEEP AID. ABD SOFT, ROUND, DENIES ABD PAIN. PT USES URINAL AT BEDSIDE, DENIES DYSURIA. GENERALIZED WEAKNESS, BEDFAST AT THIS TIME. PT USES W/C AT BEDSIDE. PT REPORTS NOT HAVING WALKED FOR SEVERAL YEARS. IV SITE TO MILEY, DUAL PORT PICC LINE, PURPLE PORT PATENT, SLIGHT RESISTANCE YET PT DENIES PAIN WITH FLUSHING. ALL COMFORT AND SAFETY MEASURES PROVIDED FOR, CALL LIGHT WITHIN REACH, BED IN LOWEST POSITION, WILL CONTINUE TO MONITOR.
[2019-06-15 20:49] VITALS: BP 98/62
--- NOTE | 2019-06-15 23:39 | NUR ---
PATIENT WENT ON CPAP FOR THE NIGHT. CPAP 10 FIO2 28%. PATIENT CONFIRMED COMFORT WITH MASK. SPO2 96.
[2019-06-16 05:16] VITALS: BP 103/63
--- NOTE | 2019-06-16 05:20 | NUR ---
PT RESTED IN INTERVALS DURING SHIFT, NO ACUTE CHANGES OCCURRING OVERNIGHT. PT UTILIZED CPAP DURING THE NIGHT, TOLERATED WELL. PT MEDICATED WITH AMBIEN FOR INSOMNIA. PT REPORTING LEFT THIGH PAIN, NO ERYTHEMA NOTED, WILL INFORM DR RAMOS THIS AM ABOUT NEW FINDING. PT WITH HX OF DVT. ON COUMADIN. PT REMAINS ON RA WHEN NOT UTILIZING CPAP. PT DENIES SOB/CP DURING SHIFT. PICC LINE TO MILEY (DUAL LUMEN PORT) ONLY PURPLE PORT REMIANS PATENT ALTHOUG SLUGGLISH. ALL COMFORT AND SAFETY MEASURES PROVIDED FOR, CALL LIGHT WITHIN REACH, BED IN LOWEST POSITION, WILL CONTINUE TO MONITOR.
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
--- NOTE | 2019-06-16 07:42 | NUR ---
ENDORSED ALL CARE TO DAYSHIFT NURSE, NO ACUTE DISTRESS NOTED. ALL QUESTIONS AND CONCERNS ADDRESSED, CALL LIGHT WITHIN REACH, BED IN LOWEST POSITION.
--- NOTE | 2019-06-16 07:43 | NUR ---
DR. LAU MET WITH AND ASSESSED PT. NO NEW ORDERS AT THIS TIME.
--- NOTE | 2019-06-16 08:35 | NUR ---
DR. LAU PREFORM DRESSING CX ON PT. BILATERAL FEET CLEANSED WITH N/S, PATTED DRY XEROFORM AND KERLIX APPLIED. DRESSING CDI. PT TOLERATED PROCEDURE WELL.
[2019-06-16 09:02] VITALS: BP 97/64
--- NOTE | 2019-06-16 09:24 | NUR ---
DR. MÁRQUEZ MET WITH AND ASSESSED PT. PT REPORTED IINTERMITTENT SHARP L LATERAL THIGH PAIN. REPORTED NEW FINDING TO DR. RAMOS. RECEIVED ORDER FOR L UPPER THIGH ULTRA SOUND. ORDER NOTED AND CARRIED OUT. PT MADE AWARE. DUE MEDS GIVEN AND TOLERATED WELL. EXTRA FLUIDS ENCOURAGED. PT STATES HE HAS PAIN 05/31. WILL GIVE PAIN MEDICATION.
--- NOTE | 2019-06-16 09:58 | NUR ---
NORCO 5/325MG PO GIVEN FOR L LATERAL LEG PAIN 05/31. EXTRA FLUIDS GIVEN. NYSTATIN POWDER APPLIED TO BILATERAL FEET/TOE AREA. PT ENCOURAGED TO I/S. PT UTILIZED I/S 10X AND WITH INSPIRED VOLUME AT 2000ML. CALL LIGHT WITHIN REACH. BED IN LOW POSITION. GUARD AT BEDSIDE ON ONE TO ONE SUPERVISION.
--- NOTE | 2019-06-16 12:16 | NUR ---
DR. RAMOS CLARIFIED PT'S U/S ORDER. D/C U/S L UPPER EXTREMITY VENOUS. NEW ORDER LEFT EXTREMITY NONVASCULAR TO RULE OUT LEFT THIGH ABCESS AND U/S VENOUS LEFT LOWER EXTREMITY TO RULE OUT DVT. ORDER NOTED AND CARRIED. PT MADE AWARE.
--- NOTE | 2019-06-16 12:17 | NUR ---
CALLED AND SPOKE TO AND VERIFIED WITH HIM HIS ORDER OF ULTRASOUND, NEW ORDER RECEIVED TO ORDER ULTRASOUND VENOUS LLE TO R/O DVT AND LT THIGH NON VASCULAR R/O LT THIGH ABSCESS. MADE HIM AWARE TOO THAT A BED IS AVAILABLE AT THE [facility], HE SAYS OKAY BUT THE ULTRASOUND HAS TO BE DONE FIRST PRIOR TO DISCHARGE TO [facility]. BASSEM VENTILATING EQUIPMENT INSTALLER MADE AWARE OF ABOVE AND WILL KEEP HER POSTED OF THE ULTRASOUND RESULT SO TO ARRANGE THE TRANSPORTATION RIGHT AFTER ULTRASOUND IS RESULTED.
--- NOTE | 2019-06-16 13:24 | NUR ---
U/S VENOUS TO LLE AND U/S L EXTREMITY COMPLETED.
--- NOTE | 2019-06-16 14:36 | NUR ---
REPORTED TO DR. RAMOS U/S EXTREMITY NON VASULAR IS NEGATIVE AND SHOWS NO EVIDENCE OF ABCESS. U/S LOWER L EXTREMITY VENOUS IS NEGATIVE AND AND SHOWS NO EVIDENCE OF DVT. RECEIVED ORDER FROM DR. RAMOS TO D/C PICC LINE. PT MAY TRANSFER TO [facility]. ORDER NOTED AND CARRIED OUT. PT MADE AWARE.
--- NOTE | 2019-06-16 14:41 | NUR ---
RECEIVED AN ORDER OKAY TO DISCONTINUE PICC LINE PRIOR TO DISCHARGING PT BACK TO [facility]. CALLED PICC LINE COMPANY AND SPOKE TO DARLING(INTAKE) AND MADE HER AWARE THAT PICC LINE NURSE NEEDED TO DISCONTINUE THE PICC LINE. SHE WILL NOTIFY PICC RN SPRING SETTER AND PICC LINE RN WILL CALL ME OF HIS E.T.A. BRENDAN RN ASSIGNED TO THIS PT MADE AWARE OF ABOVE. WILL AWAIT FOR PICC RN TO CALL.
--- NOTE | 2019-06-16 14:53 | NUR ---
SPOKE TO MAKENNA RN PICC LINE NURSE. [place] [facility] [place] PT'S PICC LINE. PT MADE AWARE.
[2019-06-16 15:18] VITALS: BP 97/64
--- NOTE | 2019-06-16 15:40 | NUR ---
PICC LINE NURSE JONATHAN MENSAH REMOVED [place] PICC LINE FROM PT. AREA WAS CLEASED WITH CLORHEXIDINE AND PRESSURE DRESSING WAS APPLIED AND MANUAL PRESSURE WAS APPLIED FOR 5 MINUTES. DRESSING IS CDI, NO S/S OF BLEEDING AT THIS TIME. WILL CONTINUE TO MONITOR. PT TOLERATED PROCEDURE WELL. STATE HE HAS LEG PAIN AT THIS TIME. NORCO WILL BE GIVEN. CALL LIGHT WITHIN REACH. BED IN LOWEST POSITION. FALL PROTOCOL MAINTAINED. GUARD AT BESIDE ON ONE TO ONE SUPERVISION.
--- NOTE | 2019-06-16 16:31 | NUR ---
NORCO 5/325 MG PO GIVEN FOR BLE THROBBING PAIN 05/31. EXTRA FLUIDS GIVEN. DUE MEDS GIVEN AND TOLERATED WELL. RESP EVEN AND UNLABORED. NO RESP DISTRESS NOTED. CALL LIGHT WITHIN REACH. GUARD AT BEDSIDE ON ONE TO ONE SUPERVISION.
--- NOTE | 2019-06-16 17:34 | NUR ---
PT TRANSFERRED TO [facility] IN NO DISTRESS. DEPUTY GIVEN D/C FORMS AND SIMPLE FACE MASK TO USE WITH OXYGEN ON BOARD TRANSPORT IN CASE OF AN EMERGENT RESP DISTRESS. TRANSFER ORDERS REVIEWED WITH PT. ALL FORMS SIGNED AND PLACED IN CHART. PT HAS PICC LINE REMOVAL SITE COVERED WITH PRESSURE DRESSING. DRESSING IS CDI. VS: T97.4, HR 66, RR 18, B/P 97/64, O2 SAT 96% ON R/A. PT DENIES PAIN AND DISCOMFORT AT TIME OF DISCHARGED. ALL PERSONAL BELONGINGS TAKEN WITH PT.
== END 2019-06-16 17:49 | disposition other institution (70) | DRG 871 ==
LOC: ED 23:52 → DU 05-24 02:55 → MU 06-08 14:51
PROVIDERS: Emergency Medicine; Internal Medicine; ADMIT Internal Medicine
PROC: 5A09357 Assistance with Respiratory Ventilation, Less than 24 Consecutive Hours, Continuous Positive Airway Pressure (ICD-10-PCS; 2019-05-24)
PROC: 5A09357 Assistance with Respiratory Ventilation, Less than 24 Consecutive Hours, Continuous Positive Airway Pressure (ICD-10-PCS; 2019-05-25)
PROC: 5A09357 Assistance with Respiratory Ventilation, Less than 24 Consecutive Hours, Continuous Positive Airway Pressure (ICD-10-PCS; 2019-05-26)
PROC: 02HV33Z Insertion of Infusion Device into Superior Vena Cava, Percutaneous Approach (ICD-10-PCS; principal; 2019-05-31)
PROC: B548ZZA Ultrasonography of Superior Vena Cava, Guidance (ICD-10-PCS; 2019-05-31)
DX: A41.9 Sepsis, unspecified organism (principal); J18.9 Pneumonia, unspecified organism; J96.21 Acute and chronic respiratory failure with hypoxia; J44.1 Chronic obstructive pulmonary disease with (acute) exacerbation; I42.9 Cardiomyopathy, unspecified; J45.901 Unspecified asthma with (acute) exacerbation; L03.116 Cellulitis of left lower limb; E66.2 Morbid (severe) obesity with alveolar hypoventilation; L03.115 Cellulitis of right lower limb; Z68.41 Body mass index [BMI] 40.0-44.9, adult; E78.00 Pure hypercholesterolemia, unspecified; I10 Essential (primary) hypertension; B18.2 Chronic viral hepatitis C; I25.10 Atherosclerotic heart disease of native coronary artery without angina pectoris; B35.1 Tinea unguium; E11.51 Type 2 diabetes mellitus with diabetic peripheral angiopathy without gangrene; J32.9 Chronic sinusitis, unspecified; I87.2 Venous insufficiency (chronic) (peripheral); Z86.718 Personal history of other venous thrombosis and embolism; Z86.73 Personal history of transient ischemic attack (TIA), and cerebral infarction without residual deficits; Z88.1 Allergy status to other antibiotic agents; Z79.899 Other long term (current) drug therapy; Z88.8 Allergy status to other drugs, medicaments and biological substances; Z88.6 Allergy status to analgesic agent; Z79.01 Long term (current) use of anticoagulants; Z86.711 Personal history of pulmonary embolism; Z79.84 Long term (current) use of oral hypoglycemic drugs
CPT/HCPCS: 36600; 82962; 83880; 85378; 97110-GP; 97530-GP; C1751; G0378; J1642; J1885; J1940; J2060; J2270; J2550; J3370; J3475; J3490; J7030; J7040; J7050; J7060; J7620; J7626; J7644; Q0092